=== PATIENT | male | born 1955 | race African-American/Black ===

== ENCOUNTER 2022-09-15 12:11 | Inpatient (IN) | payer OTHER ==
[2022-09-15] VITALS (7 sets, daily range): BP systolic 80–126; BP diastolic 42–67
[~2022-09-15] VITALS: Ht 165.1 cm; Wt 80.3 kg
[2022-09-15] MEDS ORDERED: IV NS 0.9% 1,000 ML BAG IV ONE ×2 (12:30→14:00)
--- NOTE | 2022-09-15 12:31 | NUR ---
[place]NS[place]IP CLERK AT BEDSIDE.
--- NOTE | 2022-09-15 12:31 | NUR ---
EMT BEDSIDE FOR EKG
--- NOTE | 2022-09-15 12:36 | NUR ---
COVID SWAB TAKEN
--- NOTE | 2022-09-15 12:39 | NUR ---
BLOOD DRAWN LAC 18G LINE INTERNET NETWORK SPECIALIST SALINE FLUSH.
[2022-09-15 13:05] LABS: BASOPHILS # (AUTO) 0.1 K/uL (0.0-0.2); BASOPHILS % (AUTO) 0.2 % (0.0-2.0); HEMATOCRIT 37 % (39-51); HEMOGLOBIN 11.5 g/dL (13.5-17.5); LYMPHOCYTES # (AUTO) 0.3 K/uL (0.8-4.8); LYMPHOCYTES % (AUTO) 1.1 % (20.0-44.0); MEAN CORPUSCULAR HGB CONC 31 g/dl (31.0-36.0); MEAN CORPUSCULAR VOLUME 88 fL (80-96); MONOCYTES # (AUTO) 1.2 K/uL (0.1-1.30); NEUTROPHILS # (AUTO) 28.5 K/uL (1.8-8.9); NEUTROPHILS % (AUTO) 94.7 % (43.0-81.0); PLATELET COUNT (AUTO) 437 K/uL (150-450); RED BLOOD CELL COUNT(AUTO) 4.22 MIL/uL (4.5-6.0)
[2022-09-15] MEDS ORDERED: METF-440 PO (13:26)
[2022-09-15] MEDS ORDERED: AMLO-212 PO (13:26)
[2022-09-15] MEDS ORDERED: PANT40TA2 PO (13:26)
[2022-09-15] MEDS ORDERED: CHOL400T PO (13:26)
[2022-09-15] MEDS ORDERED: ROSU40TA23 PO (13:26)
[2022-09-15] MEDS ORDERED: ACET-2605 PO (13:26)
[2022-09-15 13:29] LABS: ALANINE AMINOTRANSFERASE 17 U/L (12-78); ALBUMIN 2.7 g/dL (3.4-5.0); ALKALINE PHOSPHATASE 243 U/L (46-116); ASPARTATE AMINOTRANSFERASE 12 U/L (15-37); BILIRUBIN,DIRECT 0.2 mg/dL (0.0-0.2); BILIRUBIN,TOTAL 0.4 mg/dL (0.2-1.0); CALCIUM, SERUM 9.9 mg/dL (8.5-10.1); CARBON DIOXIDE 19 mmol/L (21-32); CHLORIDE 88 mmol/L (98-107); CREATININE 2.2 mg/dL (0.6-1.3); POTASSIUM 5.2 mmol/L (3.5-5.1); SODIUM SERUM 128 mmol/L (136-145); TOTAL PROTEIN, SERUM 8.6 g/dL (6.4-8.2); UREA NITROGEN, BLOOD 60 mg/dL (7-18)
--- NOTE | 2022-09-15 13:42 | NUR ---
lactic acid 2.6
[2022-09-15 13:43] LABS: WHITE BLOOD COUNT (AUTO) 30.1 K/uL (4.3-11.0)
[2022-09-15] MEDS ORDERED: VANCOMYCIN 1 GM in IV D5W 250 ML IV ONE (14:00)
[2022-09-15] MEDS ORDERED: PIPERACILLIN /TAZOBACTAM 3.375 G in IV D5W 50 ML IV ONE (14:00)
--- NOTE | 2022-09-15 14:14 | NUR ---
PAGED DR. ROCHA FOR CONSULT
--- NOTE | 2022-09-15 14:19 | NUR ---
URINE SAMPLE COLLECTED
--- NOTE | 2022-09-15 14:20 | NUR ---
REPLACED HENRIQUEZ CATHETER BLOODY URINE DRAINING FOWL ODOR FROM URETHRA NOTED
[2022-09-15] MEDS ORDERED: INSULIN REGULAR, HUMAN 100 UNITS in IV NS 0.9% 100 ML IV PRN ×2 (14:30)
--- NOTE | 2022-09-15 14:46 | NUR ---
NURSING SUPE CALLED TO INFORM OF UPDATE VITALS
[2022-09-15 14:59] LABS: BILIRUBIN,URINE NEGATIVE (NEGATIVE); COLOR,URINE YELLOW (YELLOW); LEUKOCYTE ESTERASE ,URINE 1+ (NEGATIVE); NITRITE, URINE NEGATIVE (NEGATIVE); PH,URINE 5.5 (5.0-8.0); PROTEIN,URINE TRACE mg/dl (NEGATIVE); UGLUCOSE 3+ mg/dL (NEGATIVE); UROBILINOGEN,URINE 0.2 EU/dL (0.2)
--- NOTE | 2022-09-15 15:26 | NUR ---
INSULIN DRIP STARTED 6.06ML/HOUR
[2022-09-15 15:29] LABS: RBC,URINE 51-80 /HPF (0-2)
[2022-09-15 15:30] LABS: BACTERIA,URINE 3+ /HPF (None Seen); SQUAMOUS EPITHELIAL CELL,UR 0-2 /HPF (None Seen); WBC,URINE 21-50 /HPF (0-3)
--- NOTE | 2022-09-15 15:55 | NUR ---
PATIENT TRANSFERRED TO BED 259 VIA [facility]
[2022-09-15 16:16] LABS: GLUCOSE 733 mg/dL (74-106)
[2022-09-15] MEDS ORDERED: ONDANSETRON HCL/PF 4 MG/2 ML VIAL IVP PRN (16:30)
[2022-09-15] MEDS ORDERED: MAG HYDROX/AL HYDROX/SIMETH 30 ML UDC PO PRN (16:30)
[2022-09-15] MEDS ORDERED: ZOLPIDEM TARTRATE 5 MG TABLET PO PRN (16:30)
[2022-09-15 16:35] LABS: BAND % (MANUAL) 11 % (0.0-5.0); LYMPHOCYTES % (MANUAL) 3 % (16-48); MONOCYTES % (MANUAL) 3 % (0-11.0); NEUTROPHILS % (MANUAL) 83 (42-76)
[2022-09-15] MEDS: IV NS 0.9% 1,000 ML IV PRN (16:53)
[2022-09-15] MEDS: BLOOD SUGAR DIAGNOSTIC 1 EACH STRIP IN SCH ×7 (16:53→23:08)
[2022-09-15] MEDS: Z GUARD REMEDY 4 OZ OINT TP PRN (16:57)
[2022-09-15] MEDS ORDERED: INS (REG) DRIP 100 U/100 ML NS IV PRN ×2 (17:00)
[2022-09-15] MEDS ORDERED: BLOOD SUGAR DIAGNOSTIC 1 EACH STRIP IN ONE (17:00)
[2022-09-15] MEDS: CEFTRIAXONE 1 G in IV D5W 50 ML IV SCH (17:01)
[2022-09-15] MEDS ORDERED: MIRT-90 PO (17:58)
[2022-09-15] MEDS ORDERED: ONDA4TAB5 PO (17:58)
[2022-09-15] MEDS ORDERED: HUM10VIA SQ (17:58)
[2022-09-15] MEDS ORDERED: TAMS-12 PO (17:58)
[2022-09-15] MEDS ORDERED: INSU100V7 SQ (17:58)
[2022-09-15] MEDS ORDERED: FLUO20TA28 PO (17:58)
--- NOTE | 2022-09-15 18:00 | NUR ---
FISHER MUSSEL NOTE ADMITTED 67Y/OLD PATIENT ON Dx OF DKA, BS-733, INFUSING INSULIN 10.99U, AND STARTED NS@125 ML/HR ON LACA DULCE INTACT. SKIN ASSESSMENT DONE INTACT. PATIENT A/O X2/3, ON O2-2L. NEEDS ATTENDED AND ANTICIPATED, BELONGING CHECKED, CALL LIGHT WITHIN TO TEACH. FAMILY NOTIFIED ABOUT PATIENT CONDITION . WILL FOLLOW UP.
[2022-09-15 20:11] LABS: CALCIUM, SERUM 9.4 mg/dL (8.5-10.1); CREATININE 2.1 mg/dL (0.6-1.3); POTASSIUM 4.3 mmol/L (3.5-5.1)
--- NOTE | 2022-09-15 20:50 | NUR ---
RN NOTES: PT KEPT REMOVING O2, REMOVED IV SALINE LOCK. ON INSULIN DRIP. CONSTANTLY MOVING ON THE BED. ON HIGH FALL RISK. NOTIFIED DR. ROCHA. ORDER-ACUTE SOFT BILATERAL RESTRAINT. ORDER NOTED AND CARRIED OUT.
[2022-09-15] MEDS: HEPARIN SODIUM, PORCINE 5000 UNITS/1 ML VIAL SQ SCH (21:43)
[2022-09-15 23:12] LABS: CALCIUM, SERUM 9.3 mg/dL (8.5-10.1); CREATININE 2.2 mg/dL (0.6-1.3); POTASSIUM 4.4 mmol/L (3.5-5.1)
[2022-09-16] VITALS (14 sets, daily range): BP systolic 88–118; BP diastolic 50–85
--- NOTE | 2022-09-16 00:06 | NUR ---
PEA VINER MECHANIC NOTES: NOTIFIED DR. DR. ROCHA REGARDING RECENT BLOOD SUGAR 118 AND ANION GAP-14. ORDER TO STOP THE INSULIN DRIP. START DIABETIC DIET, LANTUS 20 UNITS HS, ACCU-CHECK WITH MODERATE SLIDING SCALE ACHS. ALL ORDER NOTED AND CARRIED OUT.
[2022-09-16] MEDS ORDERED: INSULIN GLARGINE, 100 UNIT/ML CARTRIDGE SQ ONE (01:36)
[2022-09-16] MEDS: INSULIN GLARGINE, 100 UNIT/ML CARTRIDGE SQ SCH ×2 (01:43→21:07)
--- NOTE | 2022-09-16 01:48 | NUR ---
LAUNCH OPERATOR NOTES: PT'S BLOOD SUGAR 149. LANTUS 20 UNITS GIVEN. GAVE HIM JELLO AND PUDDING. PT TOLERATED WELL.
[2022-09-16 04:15] LABS: BASOPHILS # (AUTO) 0.1 K/uL (0.0-0.2); BASOPHILS % (AUTO) 0.2 % (0.0-2.0); HEMATOCRIT 30 % (39-51); HEMOGLOBIN 9.3 g/dL (13.5-17.5); LYMPHOCYTES # (AUTO) 0.6 K/uL (0.8-4.8); LYMPHOCYTES % (AUTO) 2.1 % (20.0-44.0); MEAN CORPUSCULAR HGB CONC 32 g/dl (31.0-36.0); MEAN CORPUSCULAR VOLUME 87 fL (80-96); MONOCYTES # (AUTO) 2.3 K/uL (0.1-1.30); MONOCYTES % (AUTO) 8.3 % (2.0-12.0); NEUTROPHILS # (AUTO) 24.9 K/uL (1.8-8.9); NEUTROPHILS % (AUTO) 89.4 % (43.0-81.0); PLATELET COUNT (AUTO) 292 K/uL (150-450); RED BLOOD CELL COUNT(AUTO) 3.42 MIL/uL (4.5-6.0); WHITE BLOOD COUNT (AUTO) 27.9 K/uL (4.3-11.0)
[2022-09-16 04:29] LABS: CALCIUM, SERUM 9.2 mg/dL (8.5-10.1); CREATININE 2.6 mg/dL (0.6-1.3); PHOSPHORUS 3.7 mg/dL (2.5-4.9)
[2022-09-16] MEDS: IV NS 0.9% 1,000 ML IV PRN ×2 (04:29→13:42)
[2022-09-16 04:38] LABS: THYROID STIMULATING HORMONE 0.624 uIU/mL (0.358-3.74)
--- NOTE | 2022-09-16 06:51 | NUR ---
STACKER TENDER CLOSING NOTES: PT IN BED, AWAKE, ALERT/ORIENTED X3 AND VERBALLY RESPONSIVE. ON 2L/MIN VIA NC AND PT TOLERATED WELL. O2 SAT 99%. IV ACCESS ON RAC#20G INTACT AND PATENT. NO S/S OF INFILTRATIONS. RUNNING NS AT 125CC/HR. NO C/O PAIN OR DISCOMFORT. NO ACUTE DISTRESS. ON BILATERAL SOFT RESTRAINTS ON. RELEASED Q 2HOURS TO CHECK CIRCULATIONS. NOTED ON AND OFF SCREAMING, YELLING. ALL DUE MEDS GIVEN ORDERED. ALL SAFETY MEASURES IN PLACE. SIDE RAILS UP X3, BED IN LOWEST POSITION AND LOCKED. PLACE CALL LIGHT WITH IN REACH. WILL ENDORSE TO MORNING SHIFT NURSE.
[2022-09-16] MEDS: BLOOD SUGAR DIAGNOSTIC 1 EACH STRIP VI SCH ×4 (07:40→21:07)
[2022-09-16] MEDS: PANTOPRAZOLE 40 MG TABLET.DR PO SCH (08:41)
[2022-09-16] MEDS: INSULIN REGULAR, HUMAN 100 UNIT/ML 3 ML VIAL SQ PRN ×3 (08:44→17:50)
[2022-09-16] MEDS: HEPARIN SODIUM, PORCINE 5000 UNITS/1 ML VIAL SQ SCH ×2 (08:50→20:40)
[2022-09-16 10:37] LABS: CALCIUM, SERUM 9.3 mg/dL (8.5-10.1); CREATININE 3.2 mg/dL (0.6-1.3); POTASSIUM 5.1 mmol/L (3.5-5.1)
--- NOTE | 2022-09-16 11:08 | NUR ---
[address] ROCHA THAT LAB CALLED TO NOTIFY THAT BOTH ANAEROBIC BOTTLES ARE POSITIVE FOR GRAM NEGATIVE RODS.
[2022-09-16] MEDS ORDERED: ONDANSETRON 4 MG TAB.RAPDIS PO PRN (13:00)
--- NOTE | 2022-09-16 15:11 | NUR ---
MS RN NOTES RECEIVED PATIENT FROM ICU WITH STAFF AT BEDSIDE , PATIENT IS AWAKE , A/O X 2 AND ABLE TO MAKE NEEDS KNOWN , ON 2 LITERS OF 02 AND TOLERATED WELL , KEPT COMFORTABLE OT BED , WITH F/C ATTACHED AND WITH YELLOW COLOR URINE , FOR URINARY RETENTION , NO SKIN BREAKDOWN NOTED , IV ACCESS O THE RAC #20G WITH NS @125 ML /H , NO SOB OR DISTRESS NOTED , NO C/O OF PAIN AND DISCOMFORT , SAFETY MEASURE PROVIDED , SIDRAILS UP X 2 , WILL CONTINUE WITH MONITOR
[2022-09-16 15:12] LABS: CALCIUM, SERUM 9.2 mg/dL (8.5-10.1); CREATININE 3.4 mg/dL (0.6-1.3); POTASSIUM 5.4 mmol/L (3.5-5.1)
[2022-09-16] MEDS: MAGNESIUM HYDROXIDE 30 ML UDC PO PRN (16:01)
[2022-09-16] MEDS ORDERED: INSULIN NPH/REG 70/30 MIX INJ 100 UNIT/ML VIAL SQ SCH (17:00)
[2022-09-16 17:17] LABS: BAND % (MANUAL) 9 % (0.0-5.0); LYMPHOCYTES % (MANUAL) 7 % (16-48); METAMYELOCYTES % 1 % (0-0); MONOCYTES % (MANUAL) 8 % (0-11.0); NEUTROPHILS % (MANUAL) 75 (42-76)
[2022-09-16] MEDS: CEFTRIAXONE 1 G in IV D5W 50 ML IV SCH (17:50)
[2022-09-16 18:09] LABS: BILIRUBIN,URINE 1+ (NEGATIVE); COLOR,URINE YELLOW (YELLOW); LEUKOCYTE ESTERASE ,URINE 2+ (NEGATIVE); NITRITE, URINE NEGATIVE (NEGATIVE); PROTEIN,URINE 2+ mg/dl (NEGATIVE); UGLUCOSE TRACE mg/dL (NEGATIVE); UROBILINOGEN,URINE 0.2 EU/dL (0.2)
[2022-09-16 18:20] LABS: CREATININE, URINE 82.4 MG/DL (30.0-125.0)
--- NOTE | 2022-09-16 18:33 | NUR ---
MS RN CLOSING NOTES PATIENT IN BED , AWAKE , A/O X 2 AND ABLE TO MAKE NEEDS KNOWN , ON 2 LITERS OF 02 AND TOLERATED WELL , KEPT COMFORTABLE OT BED , WITH F/C ATTACHED AND WITH YELLOW COLOR URINE , FOR URINARY RETENTION , NOTED WITH 1 BM AND KEPT CLEAN AND DRY , IV ACCESS O THE RAC #20G WITH NS @125 ML /H , ALL DUE MEDS GIVEN ORDERED , NO SOB OR DISTRESS NOTED , NO C/O OF PAIN AND DISCOMFORT , SAFETY MEASURE PROVIDED , SIDERAILS UP X 2 , WILL ENDORSED TO NEXT SHIFT
[2022-09-16 19:02] LABS: RBC,URINE 81-100 /HPF (0-2); WBC,URINE 21-50 /HPF (0-3)
[2022-09-16 19:03] LABS: BACTERIA,URINE 3+ /HPF (None Seen); FINE GRANULAR CASTS,URINE Few /LPF (None Seen); SQUAMOUS EPITHELIAL CELL,UR 0-2 /HPF (None Seen)
[2022-09-16 19:20] LABS: CALCIUM, SERUM 9.2 mg/dL (8.5-10.1); CREATININE 3.7 mg/dL (0.6-1.3); POTASSIUM 5.1 mmol/L (3.5-5.1)
[2022-09-16] MEDS: MIRTAZAPINE 15 MG TABLET PO SCH (21:06)
[2022-09-16] MEDS ORDERED: INSULIN GLARGINE, 100 UNIT/ML CARTRIDGE SQ SCH (22:00)
[2022-09-17] MEDS: PANTOPRAZOLE 40 MG TABLET.DR PO SCH (06:08)
[2022-09-17 06:34] LABS: BASOPHILS % (AUTO) 0.1 % (0.0-2.0); EOSINOPHILS % (AUTO) 0.7 % (0.0-6.0); HEMATOCRIT 31 % (39-51); HEMOGLOBIN 9.6 g/dL (13.5-17.5); LYMPHOCYTES # (AUTO) 0.5 K/uL (0.8-4.8); LYMPHOCYTES % (AUTO) 2.5 % (20.0-44.0); MEAN CORPUSCULAR HGB CONC 31 g/dl (31.0-36.0); MEAN CORPUSCULAR VOLUME 87 fL (80-96); MONOCYTES # (AUTO) 1.1 K/uL (0.1-1.30); MONOCYTES % (AUTO) 5.4 % (2.0-12.0); NEUTROPHILS # (AUTO) 18.7 K/uL (1.8-8.9); NEUTROPHILS % (AUTO) 91.3 % (43.0-81.0); PLATELET COUNT (AUTO) 243 K/uL (150-450); RED BLOOD CELL COUNT(AUTO) 3.53 MIL/uL (4.5-6.0); WHITE BLOOD COUNT (AUTO) 20.5 K/uL (4.3-11.0)
[2022-09-17] MEDS: BLOOD SUGAR DIAGNOSTIC 1 EACH STRIP VI SCH ×4 (06:44→21:16)
[2022-09-17 07:08] LABS: CALCIUM, SERUM 9.2 mg/dL (8.5-10.1); CREATININE 4.4 mg/dL (0.6-1.3); MAGNESIUM 2.7 mg/dL (1.8-2.4); PHOSPHORUS 5.5 mg/dL (2.5-4.9); POTASSIUM 5.4 mmol/L (3.5-5.1)
--- NOTE | 2022-09-17 07:10 | NUR ---
MS RN OPENING NOTES RECEIVED PATIENT IN BED, AWAKE, A/O X 2 AND ABLE TO MAKE NEEDS KNOWN, ON 2 LITERS OF 02 AND TOLERATED WEL , KEPT COMFORTABLE OT BED , WITH F/C ATTACHED AND WITH YELLOW COLOR URINE , FOR URINARY RETENTION , WITH IV ACCESS O THE RAC #20G WITH NS @125 ML/HR , NO SOB OR DISTRESS NOTED , NO C/O OF PAIN AND DISCOMFORT , SAFETY MEASURE PROVIDED , SIDERAILS UP X 2 , WILL CONTINUE TO MONITOR
[2022-09-17] MEDS ORDERED: PANTOPRAZOLE 40 MG TABLET.DR PO SCH (07:30)
[2022-09-17 08:00] VITALS: BP 117/73
[2022-09-17] MEDS: FLUOXETINE HCL 20 MG CAPSULE PO SCH (08:53)
[2022-09-17] MEDS: TAMSULOSIN 0.4 MG CAP.SR.24H PO SCH (08:54)
[2022-09-17] MEDS: CHOLECALCIFEROL (VITAMIN D 3) 400 UNIT TABLET PO SCH (08:55)
[2022-09-17] MEDS: ATORVASTATIN 40 MG TABLET PO SCH (08:55)
[2022-09-17] MEDS: AMLODIPINE BESYLATE 5 MG TABLET PO SCH (08:55)
[2022-09-17] MEDS: HEPARIN SODIUM, PORCINE 5000 UNITS/1 ML VIAL SQ SCH ×2 (08:57→21:05)
[2022-09-17] MEDS: INSULIN GLARGINE, 100 UNIT/ML CARTRIDGE SQ SCH ×2 (09:18→21:17)
[2022-09-17] MEDS: INSULIN REGULAR, HUMAN 100 UNIT/ML 3 ML VIAL SQ PRN ×2 (11:43→17:15)
[2022-09-17 12:06] LABS: BAND % (MANUAL) 12 % (0.0-5.0); LYMPHOCYTES % (MANUAL) 7 % (16-48); MONOCYTES % (MANUAL) 5 % (0-11.0); NEUTROPHILS % (MANUAL) 76 (42-76)
--- NOTE | 2022-09-17 13:30 | NUR ---
Removed patient's soft restraints. Patient is A/O x 3, aware of his surroundings 7 IV, reminded not to remove, cooperative and compliant.
[2022-09-17 16:00] VITALS: BP 105/67
[2022-09-17] MEDS: CEFTRIAXONE 1 G in IV D5W 50 ML IV SCH (17:00)
[2022-09-17] MEDS ORDERED: SODIUM POLYSTYRENE SULF. PWD 15 GM UDC PO ONE (18:00)
[2022-09-17] MEDS: IV NS 0.9% 1,000 ML IV SCH (18:04)
--- NOTE | 2022-09-17 18:53 | NUR ---
MS RN CLOSING NOTES: PT IN BED, AWAKE, ALERT/ORIENTED X3 AND VERBALLY RESPONSIVE. ON 2L/MIN VIA NC AND PT TOLERATED WELL. O2 SAT 99%. IV ACCESS ON RAC#20G INTACT AND PATENT. NO S/S OF INFILTRATIONS. RUNNING NS AT 125CC/HR. NO C/O PAIN OR DISCOMFORT. NO ACUTE DISTRESS. SOFT RESTRAINTS REMOVED FOR NOW AND BUT ON STAND BY, RN TO PUT BACK PRN. ALL DUE MEDS GIVEN ORDERED INCLUDING SODIUM POLYSTYRENE ORDERED. ALL SAFETY MEASURES IN PLACE. SIDE RAILS UP X3, BED IN LOWEST POSITION AND LOCKED. PLACE CALL LIGHT WITH IN REACH. WILL ENDORSE TO GROUNDHAND RN.
--- NOTE | 2022-09-17 19:30 | NUR ---
MS RN OPENING NOTES - RECEIVED PATIENT AWAKE, HOB IN HIGH CHEEMA'S. A/O X2-3, MODERATE WEAKNESS ON BILATERAL UPPER EXTREMITIES NOTED. BREATHING EVEN AND NON-LABORED, ON O2 AT 2LPM VIA NASAL CANULA. NO C/O PAIN OR DISCOMFORT AT THIS TIME. HAS RIGHT FOREARM IV ACCESS #20G WITH NS RUNNING AT 100 ML/HR. NO S/S OF INFILTRATION NOTED. HAS INDWELLING HENRIQUEZ CATHETER DRAINING CLEAR YELLOW URINE TO BAG BY GRAVITY. SAFETY PRECAUTIONS IN PLACE: BED LOCKED AND IN LOW POSITION, SIDE RAILS UP X2, CALL LIGHT WITHIN REACH. WILL CONTINUE PLAN OF CARE.
[2022-09-17 19:37] LABS: CALCIUM, SERUM 9.1 mg/dL (8.5-10.1); CREATININE 5.1 mg/dL (0.6-1.3); POTASSIUM 5.2 mmol/L (3.5-5.1)
--- NOTE | 2022-09-17 19:39 | NUR ---
RECEIVED CALL FROM LAB: [facility]. WILL INFORM HOSPITALIST LILLI BRANTLEY Addendum: 09/17/22 at 1945 by January CANDICE TORRES NOTIFIED DR. MORALES Addendum: 09/17/22 at 204 by January CANDICE TORRES NO NEW ORDER FROM BOTH DOCTORS.
[2022-09-17 20:22] VITALS: BP 101/65
[2022-09-17] MEDS: MIRTAZAPINE 15 MG TABLET PO SCH (21:03)
[2022-09-17] MEDS: ACETAMINOPHEN ES 500 MG TABLET PO PRN (21:04)
[2022-09-17] MEDS: *INSULIN REGULAR(HUMULIN R)HUM 100 UNIT/ML VIAL SQ PRN (21:17)
--- NOTE | 2022-09-17 22:05 | NUR ---
DID NOT ADMINISTER LANT, BS 89
--- NOTE | 2022-09-17 23:06 | NUR ---
PATIENT HAD SOFT BM X4 TODAY. NOTIFIED LILLI AND ORDERED IMODIUM 2MG PO Q4H PRN. NOTED AND CARRIED OUT.
[2022-09-17] MEDS ORDERED: LOPERAMIDE HCL (2 MG CAP) 2 MG CAPSULE PO PRN (23:30)
[2022-09-18] MEDS ORDERED: LOPERAMIDE HCL (2 MG CAP) 2 MG CAPSULE ONE (03:05)
[2022-09-18] MEDS: IV NS 0.9% 1,000 ML IV SCH ×2 (04:49→18:44)
[2022-09-18 06:09] LABS: BASOPHILS # (AUTO) 0.1 K/uL (0.0-0.2); BASOPHILS % (AUTO) 0.5 % (0.0-2.0); EOSINOPHILS % (AUTO) 0.3 % (0.0-6.0); HEMATOCRIT 33 % (39-51); HEMOGLOBIN 10.2 g/dL (13.5-17.5); LYMPHOCYTES # (AUTO) 0.4 K/uL (0.8-4.8); LYMPHOCYTES % (AUTO) 2.8 % (20.0-44.0); MEAN CORPUSCULAR HGB CONC 31 g/dl (31.0-36.0); MEAN CORPUSCULAR VOLUME 86 fL (80-96); MONOCYTES # (AUTO) 0.2 K/uL (0.1-1.30); MONOCYTES % (AUTO) 1.8 % (2.0-12.0); NEUTROPHILS # (AUTO) 12.2 K/uL (1.8-8.9); NEUTROPHILS % (AUTO) 94.6 % (43.0-81.0); PLATELET COUNT (AUTO) 223 K/uL (150-450); RED BLOOD CELL COUNT(AUTO) 3.82 MIL/uL (4.5-6.0); WHITE BLOOD COUNT (AUTO) 12.9 K/uL (4.3-11.0)
[2022-09-18 06:22] LABS: CALCIUM, SERUM 9.2 mg/dL (8.5-10.1); CREATININE 5.4 mg/dL (0.6-1.3); MAGNESIUM 2.9 mg/dL (1.8-2.4); PHOSPHORUS 7.1 mg/dL (2.5-4.9)
--- NOTE | 2022-09-18 06:26 | NUR ---
BS 60, APPLE JUICE GIVEN. WILL RECHECK IN 30 MINUTES. Addendum: 09/18/22 at 0649 by January CANDICE TORRES GAVE CRANBERRY JUICE WITH SUGAR PER CN
[2022-09-18] MEDS: INSULIN REGULAR, HUMAN 100 UNIT/ML 3 ML VIAL SQ PRN (06:32)
[2022-09-18] MEDS: BLOOD SUGAR DIAGNOSTIC 1 EACH STRIP VI SCH ×4 (06:32→22:44)
--- NOTE | 2022-09-18 06:58 | NUR ---
MS RN CLOSING NOTES - PATIENT SLEEPING, EASY TO AROUSE. NO ACUTE DISTRESS THROUGHOUT THE NIGHT. TOLERATING O2 AT 2LPM VIA NASAL CANULA, SATURATING AT 96%. NO C/O PAIN OR DISCOMFORT AT THIS TIME. AFEBRILE. HAD BM X4, NO EPISODE AFTER TAKING IMODIUM. RIGHT FOREARM IV ACCESS #20G INTACT, PATENT AND FLUSHING. ALL DUE MEDS GIVEN AND NEEDS ATTENDED. NO INSULIN COVERAGE GIVEN. SAFETY PRECAUTIONS MAINTAINED. WILL ENDORSE TO NEXT SHIFT FOR CALLY.
--- NOTE | 2022-09-18 07:10 | NUR ---
MS RN OPENING NOTES RECEIVED PATIENT IN BED, AWAKE, A/O X 2 AND ABLE TO MAKE NEEDS KNOWN, ON 2 LITERS OF 02 AND TOLERATING WELL, KEPT COMFORTABLE IN BED, ON F/C WITH YELLOW COLOR URINE, FOR URINARY RETENTION, WITH IV ACCESS ON RAC #20G RUNNING NS @100 ML/HR, NO SOB OR DISTRESS NOTED, NO C/O OF PAIN AND DISCOMFORT, SAFETY MEASURE PROVIDED, SIDE RAILS UP X2, WILL CONTINUE TO MONITOR
[2022-09-18] MEDS: CHOLECALCIFEROL (VITAMIN D 3) 400 UNIT TABLET PO SCH (08:18)
[2022-09-18] MEDS: PANTOPRAZOLE 40 MG TABLET.DR PO SCH (08:18)
[2022-09-18] MEDS: TAMSULOSIN 0.4 MG CAP.SR.24H PO SCH (08:18)
[2022-09-18] MEDS: AMLODIPINE BESYLATE 5 MG TABLET PO SCH (08:19)
[2022-09-18] MEDS: FLUOXETINE HCL 20 MG CAPSULE PO SCH (08:19)
[2022-09-18 08:20] VITALS: BP 108/66
[2022-09-18] MEDS: ATORVASTATIN 40 MG TABLET PO SCH (08:20)
[2022-09-18] MEDS: HEPARIN SODIUM, PORCINE 5000 UNITS/1 ML VIAL SQ SCH ×2 (08:21→21:44)
[2022-09-18] MEDS: INSULIN GLARGINE, 100 UNIT/ML CARTRIDGE SQ SCH ×2 (08:36→22:00)
[2022-09-18] MEDS ORDERED: IV NS 0.9% 1,000 ML IV PRN (09:32)
[2022-09-18 16:24] VITALS: BP 107/63
[2022-09-18] MEDS: CEFTRIAXONE 1 G in IV D5W 50 ML IV SCH (17:51)
--- NOTE | 2022-09-18 19:00 | NUR ---
RN OPENING NOTES PT IS AWAKE IN BED. A/O X 3, ABLE TO MAKE NEEDS KNOWN. PT IN NASAL CANNULA OF 2L O2, TOLERATING WELL, BREATHING EVEN AND UNLABORED @ THIS TIME. PT IV ACCESS PRESENT LFA #20g NL RUNNING 100 MLS/HR OF NS, PATENT, INTACT AND FLUSHES WELL, WITH NO S/S OF INFILTRATION @ SITE NOTED. PT IN HENRIQUEZ CATHETER IN PLACE DRAINING YELLOW URINE. SAFETY MEASURES IN PLACE, BED AT ITS LOWEST AND LOCKED POSITION, SIDE RAILS X 3, BEDSIDE TABLE AND CALL LIGHT IS EASY REACH. BED ALARM IS ON. WILL CONTINUE TO MONITOR PATIENT ACCORDINGLY.
--- NOTE | 2022-09-18 19:20 | NUR ---
MS RN CLOSING NOTES: PT IN BED, AWAKE, ALERT/ORIENTED X3 AND VERBALLY RESPONSIVE. ON 2L/MIN VIA NC AND PT TOLERATED WELL. O2 SAT 98%. IV ACCESS ON RAC#20G INTACT AND PATENT. NO S/S OF INFILTRATIONS. RUNNING NS AT 100CC/HR. NO C/O PAIN OR DISCOMFORT. NO ACUTE DISTRESS. SOFT RESTRAINTS REMOVED. ALL DUE MEDS GIVEN ORDERED. ALL SAFETY MEASURES IN PLACE. SIDE RAILS UP X3, BED IN LOWEST POSITION AND LOCKED. PLACE CALL LIGHT WITH IN REACH. WILL ENDORSE TO ROTARY DRIER OPERATOR RN.
[2022-09-18 19:25] LABS: CALCIUM, SERUM 8.6 mg/dL (8.5-10.1); CREATININE 5.8 mg/dL (0.6-1.3); POTASSIUM 4.7 mmol/L (3.5-5.1)
[2022-09-18 20:00] VITALS: BP 104/61
[2022-09-18] MEDS: MIRTAZAPINE 15 MG TABLET PO SCH (21:44)
[2022-09-18] MEDS: DEXTROSE 50%-WATER 50 ML DISP.SYRIN IV PRN (22:08)
--- NOTE | 2022-09-18 22:46 | NUR ---
HELD JON @2200 DUE TO POC GLUCOSE OF 53.
--- NOTE | 2022-09-18 22:48 | NUR ---
ADMINISTERED 50%-WATER 50ML @ 250 MLS/HR DUE TO POC GLUCOSE OF 53. Addendum: 09/19/22 at 0558 by BENITEZ CASILLAS RN CHARGE MARCIE SWEET IS INFOMED AND NOTIFIED.
[2022-09-19] MEDS: ACETAMINOPHEN 325 MG TABLET PO PRN (04:36)
[2022-09-19] MEDS: IV NS 0.9% 1,000 ML IV SCH ×2 (04:37→14:33)
[2022-09-19] MEDS: DEXTROSE 50%-WATER 50 ML DISP.SYRIN IV PRN (05:43)
--- NOTE | 2022-09-19 05:58 | NUR ---
ADMINISTERED DEXTROSE 50-WATER 50 @ 250 MLS/HR DUE TO POC GLUCOSE OF 38 @0540. PT GIVEN & DRUNK 1 APPLE WITH 3g of EQUAL SWEETENER. CHARGE NURSE, MARCIE INFORMED AND NOTIFIED.
[2022-09-19 06:19] LABS: BASOPHILS % (AUTO) 0.2 % (0.0-2.0); EOSINOPHILS % (AUTO) 0.5 % (0.0-6.0); HEMATOCRIT 28 % (39-51); HEMOGLOBIN 8.7 g/dL (13.5-17.5); LYMPHOCYTES # (AUTO) 0.5 K/uL (0.8-4.8); LYMPHOCYTES % (AUTO) 3.4 % (20.0-44.0); MEAN CORPUSCULAR HGB CONC 32 g/dl (31.0-36.0); MEAN CORPUSCULAR VOLUME 86 fL (80-96); MONOCYTES # (AUTO) 1.4 K/uL (0.1-1.30); MONOCYTES % (AUTO) 9.8 % (2.0-12.0); NEUTROPHILS # (AUTO) 12.4 K/uL (1.8-8.9); NEUTROPHILS % (AUTO) 86.1 % (43.0-81.0); PLATELET COUNT (AUTO) 175 K/uL (150-450); RED BLOOD CELL COUNT(AUTO) 3.21 MIL/uL (4.5-6.0); WHITE BLOOD COUNT (AUTO) 14.4 K/uL (4.3-11.0)
--- NOTE | 2022-09-19 06:20 | NUR ---
RN CLOSING NOTES PT IS DOZING INTERMITTENTLY. A/O X 3, ABLE TO MAKE NEEDS KNOWN. PT IN NASAL CANNULA OF 2L O2, TOLERATING WELL, BREATHING EVEN AND UNLABORED @ THIS TIME. PT IV ACCESS PRESENT LFA #20g NL RUNNING 100 MLS/HR OF NS, PATENT, INTACT AND FLUSHES WELL, WITH NO S/S OF INFILTRATION @ SITE NOTED. PT IN HENRIQUEZ CATHETER IN PLACE DRAINING YELLOW URINE. MEDICATION ADMINISTERED PER MD'S ORDER. SAFETY MEASURES IN PLACE, BED AT ITS LOWEST AND LOCKED POSITION, SIDE RAILS X 3, BEDSIDE TABLE AND CALL LIGHT IS EASY REACH. BED ALARM IS ON. WILL CONTIINUE TO MONITOR PATIENT ACCORDINGLY.
[2022-09-19] MEDS: PANTOPRAZOLE 40 MG TABLET.DR PO SCH (06:42)
[2022-09-19] MEDS: BLOOD SUGAR DIAGNOSTIC 1 EACH STRIP VI SCH ×4 (06:42→21:51)
[2022-09-19 06:58] LABS: CALCIUM, SERUM 8.5 mg/dL (8.5-10.1); CREATININE 5.8 mg/dL (0.6-1.3); MAGNESIUM 2.5 mg/dL (1.8-2.4); POTASSIUM 4.4 mmol/L (3.5-5.1)
--- NOTE | 2022-09-19 07:55 | NUR ---
MS RN OPENING NOTE RECEIVED PATIENT RESTING IN BED. HOB IN HIGH CHEEMA'S. A/O X2-3. BREATHING EVEN AND NON-LABORED, ON O2 AT 2LPM VIA NASAL CANULA. NO C/O PAIN OR DISCOMFORT AT THIS TIME. HAS RIGHT FOREARM IV ACCESS #20G WITH NS RUNNING AT 100 ML/HR. NO S/S OF INFILTRATION NOTED. HAS INDWELLING HENRIQUEZ CATHETER DRAINING CLEAR YELLOW URINE TO BAG BY GRAVITY. SAFETY PRECAUTIONS IN PLACE: BED LOCKED AND IN LOW POSITION, SIDE RAILS UP X2, CALL LIGHT WITHIN REACH. WILL CONTINUE TO MONITOR PT AND PROVIDE THE CARE.
[2022-09-19 08:36] VITALS: BP 107/67
[2022-09-19] MEDS: CHOLECALCIFEROL (VITAMIN D 3) 400 UNIT TABLET PO SCH (09:30)
[2022-09-19] MEDS: FLUOXETINE HCL 20 MG CAPSULE PO SCH (09:31)
[2022-09-19] MEDS: TAMSULOSIN 0.4 MG CAP.SR.24H PO SCH (09:31)
[2022-09-19] MEDS: AMLODIPINE BESYLATE 5 MG TABLET PO SCH (09:31)
[2022-09-19] MEDS: ATORVASTATIN 40 MG TABLET PO SCH (09:31)
[2022-09-19] MEDS: HEPARIN SODIUM, PORCINE 5000 UNITS/1 ML VIAL SQ SCH ×2 (09:33→21:00)
--- NOTE | 2022-09-19 09:40 | NUR ---
NOTIFIED HOSPITALIST LILLI THAT HGB DROPPED FROM 10.2 TO 8.7 AND PATIENT HAS HISTORY OF ANEMIA. ORDERED TO HOLD HEPARIN TONIGHT. NOTED AND CARRIED OUT. Addendum: 09/19/22 at 2213 by January CANDICE TORRES INCORRECT TIME
[2022-09-19] MEDS: INSULIN GLARGINE, 100 UNIT/ML CARTRIDGE SQ SCH ×2 (10:04→21:50)
[2022-09-19 16:04] VITALS: BP 109/62
[2022-09-19] MEDS: CEFTRIAXONE 1 G in IV D5W 50 ML IV SCH (17:00)
--- NOTE | 2022-09-19 18:36 | NUR ---
RN CLOSING NOTE PT IS RESTING IN BED, A/O X2-3, ABLE TO MAKE NEEDS KNOWN. PT WITH NASAL CANNULA OF 2L O2, TOLERATING WELL, BREATHING EVEN AND NON LABORED. IV ACCESS PRESENT LFA #20G RUNNING 100 MLS/HR OF NS, PATENT, INTACT AND FLUSHES WELL, WITH NO S/S OF INFILTRATION @ SITE NOTED. PT IN HENRIQUEZ CATHETER IN PLACE DRAINING YELLOW URINE. KEPT PATIENT CLEAN AND DRY. MEDICATION ADMINISTERED ORDER. SAFETY MEASURES IN PLACE, BED AT ITS LOWEST AND LOCKED POSITION, SIDE RAILS X 3, BEDSIDE TABLE AND CALL LIGHT IS EASY REACH. BED ALARM IS ON. WILL ENDORSE TO INCOMING SHIFT FOR CALLY.
[2022-09-19 19:28] LABS: CALCIUM, SERUM 8.2 mg/dL (8.5-10.1); POTASSIUM 4.9 mmol/L (3.5-5.1)
--- NOTE | 2022-09-19 19:30 | NUR ---
MS RN OPENING NOTES - RECEIVED PATIENT SLEEPING IN BED, EASY TO AROUSE. A/O X3, WITH PERIODS OF CONFUSION. HE IS LOOKING FOR HIS BREAKFAST. BLOOD SUGAR 114. BREATHING EVEN AND NON-LABORED, ON O2 AT 2LPM VIA NASAL CANULA. NOT IN ACUTE DISTRESS. NO C/O PAIN OR DISCOMFORT AT THIS TIME. HAS RIGHT FOREARM IV ACCESS #20G WITH NS RUNNING AT 100 ML/HR. NO S/S OF INFILTRATION NOTED. HAS INDWELLING HENRIQUEZ CATHETER DRAINING CLEAR CINDY URINE TO BAG BY GRAVITY. SAFETY MEASURES IN PLACE: BED LOCKED AND IN LOW POSITION, SIDE RAILS UP X3, CALL LIGHT WITHIN REACH. WILL CONTINUE PLAN OF CARE.
[2022-09-19 20:00] VITALS: BP 102/61
[2022-09-19] MEDS: MIRTAZAPINE 15 MG TABLET PO SCH (21:27)
[2022-09-19] MEDS: ACETAMINOPHEN ES 500 MG TABLET PO PRN (21:27)
--- NOTE | 2022-09-19 21:40 | NUR ---
NOTIFIED HOSPITALIST LILLI THAT HGB DROPPED FROM 10.2 TO 8.7 AND PATIENT HAS HISTORY OF ANEMIA. ORDERED TO HOLD HEPARIN TONIGHT. NOTED AND CARRIED OUT.
[2022-09-19] MEDS: *INSULIN REGULAR(HUMULIN R)HUM 100 UNIT/ML VIAL SQ PRN (21:51)
--- NOTE | 2022-09-19 22:45 | NUR ---
NOTIFIED HOSPITALIST LILLI THAT PATIENT HAS BEEN C/O SHARP PAIN IN HIS URETHRAL HOLE. UPON ASSESSMENT, THERE IS MINIMAL PUS IN THE HOLE AND CLOUDY URINE IN THE CATHETER. CLEANED PENIS WITH NS AND SECURED CATHETER. PER LILLI, SHE WILL INPUT AN ORDER FOR LIDOCAINE. POSSIBLE REINSERTION OF NEW IFC WELL. Addendum: 09/20/22 at 0543 by January CANDICE TORRES STILL C/O URETHRAL HOLE PAIN. SWELLING IN THE GLANS AND MINIMAL URINE OUTPUT NOTED. FLUSHED HENRIQUEZ CATHETER WITH 200 ML NS BUT WAS ABLE TO ASPIRATE 100 ML ONLY. BLADDER SCAN SHOWS URINE RETENTION OF >100 ML. PERSONAL FITNESS TRAINER AWARE OF BUN TRENDING UP.
[2022-09-19] MEDS ORDERED: LIDOCAINE 2% JEL 5 ML TUBE MC ONE (23:00)
[2022-09-19] MEDS ORDERED: LIDOCAINE 2% JEL 5 ML TUBE ONE (23:14)
[2022-09-20] MEDS: IV NS 0.9% 1,000 ML IV SCH ×3 (01:00→21:15)
[2022-09-20 05:52] LABS: BASOPHILS % (AUTO) 0.2 % (0.0-2.0); EOSINOPHILS % (AUTO) 0.5 % (0.0-6.0); HEMATOCRIT 27 % (39-51); HEMOGLOBIN 8.7 g/dL (13.5-17.5); LYMPHOCYTES # (AUTO) 0.3 K/uL (0.8-4.8); MEAN CORPUSCULAR HGB CONC 32 g/dl (31.0-36.0); MEAN CORPUSCULAR VOLUME 85 fL (80-96); MONOCYTES # (AUTO) 0.6 K/uL (0.1-1.30); MONOCYTES % (AUTO) 7.4 % (2.0-12.0); NEUTROPHILS # (AUTO) 7.7 K/uL (1.8-8.9); NEUTROPHILS % (AUTO) 88.9 % (43.0-81.0); PLATELET COUNT (AUTO) 169 K/uL (150-450); RED BLOOD CELL COUNT(AUTO) 3.15 MIL/uL (4.5-6.0); WHITE BLOOD COUNT (AUTO) 8.7 K/uL (4.3-11.0)
[2022-09-20 06:12] LABS: CALCIUM, SERUM 8.5 mg/dL (8.5-10.1); CREATININE 6.3 mg/dL (0.6-1.3); MAGNESIUM 2.5 mg/dL (1.8-2.4); PHOSPHORUS 7.3 mg/dL (2.5-4.9)
--- NOTE | 2022-09-20 06:30 | NUR ---
BS 137, NO INSULIN COVERAGE GIVEN SINCE PATIENT HAS POOR PO INTAKE AND EPISODES OF HYPOGLYCEMIA.
[2022-09-20] MEDS: INSULIN REGULAR, HUMAN 100 UNIT/ML 3 ML VIAL SQ PRN ×3 (06:36→17:22)
[2022-09-20] MEDS: BLOOD SUGAR DIAGNOSTIC 1 EACH STRIP VI SCH ×4 (06:36→22:41)
--- NOTE | 2022-09-20 06:48 | NUR ---
MS RN CLOSING NOTES - PATIENT AWAKE IN BED, LETHARGIC BUT ABLE TO VERBALIZE NEEDS. HAD MILD DISTRESS DUE TO URETHRAL HOLE PAIN. NO SOB OR NOTED, TOLERATING O2 AT 2LPM WELL. AFEBRILE. RIGHT FOREARM IV ACCESS #20G INTACT, PATENT AND FLUSHING. CLOUDY CINDY URINE STILL NOTED. ALL DUE MEDS GIVEN AND NEEDS ATTENDED. REPOSITIONED AND OFFLOADED BUTTOCKS AND BILATERAL LOWER EXTREMITIES. SAFETY MEASURES MAINTAINED. WILL ENDORSE TO NEXT SHIFT FOR CALLY.
--- NOTE | 2022-09-20 07:27 | NUR ---
MS RN OPENING NOTE RECEIVED PT ASLEEP IN BED, EASILY AROUSED. PATIENT IS ALERT AND ORIENTED X3 WITH PERIODS OF CONFUSION, REDIRECTED AND REORIENTED PT NEEDED. PT ON O2 AT 2L/MIN VIA NASAL CANNULA, TOLERATING WELL. NO SOB NOTED AT THIS TIME. NOT IN ANY SIGN OF RESPIRATORY DISTRESS. IV ACCESS ON RFA G#20 INTACT AND PATENT WITH NS INFUSING AT 100ML/HR. SAFETY MEASURES INITIATED: BED IN LOWEST AND LOCKED POSITION, SIDE RAILS UP X2, AND CALL LIGHT WITHIN REACH. WILL CONTINUE TO MONITOR PT.
[2022-09-20 08:00] VITALS: BP 98/53
[2022-09-20] MEDS: PANTOPRAZOLE 40 MG TABLET.DR PO SCH (08:16)
[2022-09-20] MEDS: INSULIN GLARGINE, 100 UNIT/ML CARTRIDGE SQ SCH ×2 (08:21→22:29)
[2022-09-20] MEDS: AMLODIPINE BESYLATE 5 MG TABLET PO SCH (08:49)
[2022-09-20] MEDS: ATORVASTATIN 40 MG TABLET PO SCH (08:49)
[2022-09-20] MEDS: FLUOXETINE HCL 20 MG CAPSULE PO SCH (08:49)
[2022-09-20] MEDS: CHOLECALCIFEROL (VITAMIN D 3) 400 UNIT TABLET PO SCH (08:49)
[2022-09-20] MEDS: TAMSULOSIN 0.4 MG CAP.SR.24H PO SCH (08:49)
[2022-09-20] MEDS: HEPARIN SODIUM, PORCINE 5000 UNITS/1 ML VIAL SQ SCH ×2 (09:00→21:19)
--- NOTE | 2022-09-20 09:40 | NUR ---
RN NOTE PT REFUSED HIS HEPARIN MEDICATION SCHEDULED AT 0900. EXPLAINED RISK AND BENEFITS, PT STILL REFUSED.
[2022-09-20 13:58] LABS: BAND % (MANUAL) 3 % (0.0-5.0); EOSINOPHILS % (MANUAL) 1 % (0-4); LYMPHOCYTES % (MANUAL) 4 % (16-48); MONOCYTES % (MANUAL) 6 % (0-11.0); NEUTROPHILS % (MANUAL) 86 (42-76)
[2022-09-20 16:09] VITALS: BP 119/62
[2022-09-20] MEDS: GLUCERNA SHAKE 237 ML CAN PO SCH (17:22)
[2022-09-20] MEDS: CEFTRIAXONE 1 G in IV D5W 50 ML IV SCH (18:21)
--- NOTE | 2022-09-20 19:40 | NUR ---
MS RN CLOSING NOTE PT ASLEEP IN BED, EASILY AROUSED. PATIENT IS ALERT AND ORIENTED X3 WITH PERIODS OF CONFUSION, REDIRECTED AND REORIENTED PT NEEDED. PT ON O2 AT 2L/MIN VIA NASAL CANNULA, TOLERATING WELL. NO SOB NOTED AT THIS TIME. NOT IN ANY SIGN OF RESPIRATORY DISTRESS. IV ACCESS ON RFA G#20 INTACT AND PATENT WITH NS INFUSING AT 100ML/HR. ALL NEEDS ATTENDED. KEPT CLEAN AND COMFORTABLE AT ALL TIMES. TURNED AND REPOSITIONED Q2HRS AND NEEDED. SAFETY MEASURES IN PLACE: BED IN LOWEST AND LOCKED POSITION, SIDE RAILS UP X2, AND CALL LIGHT WITHIN REACH. ENDORSED TO WIRING MECHANIC NURSE FOR CALLY.
[2022-09-20] MEDS: ACETAMINOPHEN 325 MG TABLET PO PRN (19:53)
--- NOTE | 2022-09-20 19:57 | NUR ---
RN OPENING NOTES RECEIVED PATIENT ON BED, AWAKE, A/O X3. ON MODERATE HIGH BACK REST POSITION. HOOKED TO OXYGEN VIA NASAL CANNULA AT 2LPM. TOLERATING WELL. NO S/S OF SHORTNESS OF BREATH. BREATH EVENLY. WITH IV ACCESS AT FFA #20G WITH NS AT 100ML/HR INFUSING WELL. PATIENT COMPLAINS OF PAIN AT THIS TIME /10. PAIN MEDICATIONS GIVEN AND TOLERATED WELL. KEPT SIDE RAILS UP X 2 ALL THE TIME. KEPT BED ON LOWER LOCKED POSITION. KEPT CALL LIGHT WITHIN AT REACH. SAFETY MEASURES MAINTAINED. WILL CONTINUE TO MONITOR PATIENTS CONDITION.
[2022-09-20 20:00] VITALS: BP 105/60
[2022-09-20 20:10] LABS: CALCIUM, SERUM 8.6 mg/dL (8.5-10.1); CREATININE 6.7 mg/dL (0.6-1.3); POTASSIUM 5.3 mmol/L (3.5-5.1)
[2022-09-20] MEDS: MIRTAZAPINE 15 MG TABLET PO SCH (22:22)
[2022-09-20] MEDS: *INSULIN REGULAR(HUMULIN R)HUM 100 UNIT/ML VIAL SQ PRN (22:41)
[2022-09-21 06:23] LABS: BASOPHILS % (AUTO) 0.1 % (0.0-2.0); EOSINOPHILS % (AUTO) 0.4 % (0.0-6.0); HEMATOCRIT 25 % (39-51); HEMOGLOBIN 7.6 g/dL (13.5-17.5); LYMPHOCYTES # (AUTO) 0.6 K/uL (0.8-4.8); MEAN CORPUSCULAR HGB CONC 31 g/dl (31.0-36.0); MEAN CORPUSCULAR VOLUME 88 fL (80-96); MONOCYTES # (AUTO) 1.6 K/uL (0.1-1.30); MONOCYTES % (AUTO) 14.3 % (2.0-12.0); NEUTROPHILS # (AUTO) 9.2 K/uL (1.8-8.9); NEUTROPHILS % (AUTO) 80.2 % (43.0-81.0); PLATELET COUNT (AUTO) 212 K/uL (150-450); RED BLOOD CELL COUNT(AUTO) 2.81 MIL/uL (4.5-6.0); WHITE BLOOD COUNT (AUTO) 11.5 K/uL (4.3-11.0)
[2022-09-21] MEDS: BLOOD SUGAR DIAGNOSTIC 1 EACH STRIP VI SCH ×4 (06:24→22:00)
[2022-09-21 06:59] LABS: CALCIUM, SERUM 8.7 mg/dL (8.5-10.1); MAGNESIUM 2.7 mg/dL (1.8-2.4); POTASSIUM 5.6 mmol/L (3.5-5.1)
[2022-09-21 07:02] LABS: PHOSPHORUS 9.3 mg/dL (2.5-4.9)
--- NOTE | 2022-09-21 07:19 | NUR ---
RN CLOSING NOTES PATIENT IS IN BED,ASLEEP. ON MODERATE HIGH BACK REST POSITION. ON FULL CODE STATUS. STABLE VITAL SIGNS. HOOKED TO OXYGEN VIA NASAL CANNULA AT 2 LPM TOLERATING WELL.WITH IV ACCESS AT RFA #20G WITH NS AT 100ML/HR INFUSING WELL. NO S/S OF SHORTNESS OF BREATH NOTED AT THIS TIME. NO PAIN OR DISCOMFORT NOTED; STABLE VITAL SIGNS NOTED. WITH INDWELLING HENRIQUEZ CATHETER CONNECTED TO URINE BAG INFUSING WELL. CONTINENT WITH BEDPAN. ABLE TO VERBALIZED NEED. KEPT BED ON LOWER LOCKED POSITION. KEPT SIDE RAILS UP X 2 ALL THE TIME. KEPT CALL LIGHT WITHIN AT REACH. WILL ENDORSED TO METAL MINER FOR CALLY.
--- NOTE | 2022-09-21 07:27 | NUR ---
MS RN OPENING NOTE RECEIVED PT ASLEEP IN BED, EASILY AROUSED. PATIENT IS ALERT AND ORIENTED X2 WITH PERIODS OF CONFUSION, REDIRECTED AND REORIENTED PT NEEDED. PT ON O2 AT 2L/MIN VIA NASAL CANNULA, TOLERATING WELL. NO SOB NOTED AT THIS TIME. NOT IN ANY SIGN OF RESPIRATORY DISTRESS. IV ACCESS ON RFA G#20 INTACT AND PATENT WITH NS INFUSING AT 100ML/HR. SAFETY MEASURES INITIATED: BED IN LOWEST AND LOCKED POSITION, SIDE RAILS UP X2, AND CALL LIGHT WITHIN REACH. WILL CONTINUE TO MONITOR PT.
[2022-09-21] MEDS: PANTOPRAZOLE 40 MG TABLET.DR PO SCH (07:57)
[2022-09-21 08:00] VITALS: BP 103/57
--- NOTE | 2022-09-21 08:05 | NUR ---
RN NOTE CALLED DR. MORALES AND MADE HIM AWARE THAT PT'S BUN IS 161, CREATININE 7.0, AND POTASSIUM 5.6 AND IT'S TRENDING UP. PER DR. MORALES HE ASKED KORI REYES TO PLACE HD CATH ON THE. PT WILL HAVE DIALYSIS TODAY.
[2022-09-21] MEDS: GLUCERNA SHAKE 237 ML CAN PO SCH ×2 (08:47→16:49)
[2022-09-21] MEDS: AMLODIPINE BESYLATE 5 MG TABLET PO SCH (09:00)
[2022-09-21] MEDS: HEPARIN SODIUM, PORCINE 5000 UNITS/1 ML VIAL SQ SCH (09:00)
--- NOTE | 2022-09-21 09:00 | NUR ---
RN NOTE PT REMAINS A/O X2 WITH PERIODS OF CONFUSION. NOT ABLE TO GIVE CONSENT FOR A TEMPORARY HD CATH PLACEMENT AND DIALYSIS. PT ALSO DOES NOT HAVE ANY FAMILY OR ANYONE TO GIVE CONSENT FOR THE PROCEDURE. MADE DR. ROCHA AWARE AND PER MD, SHE IS AWARE OF PT NOT ABLE TO GIVE CONSENT AND NO FAMILY AVAILABLE BUT PROCEED WITH TEMPORARY HD CATH PLACEMENT AND DIALYSIS TO AVOID RISK OF MAJOR MORBIDITY OR MORTALITY OF AZOTEMIA AND FLUID OVERLOAD.
[2022-09-21] MEDS: CHOLECALCIFEROL (VITAMIN D 3) 400 UNIT TABLET PO SCH (09:10)
[2022-09-21] MEDS: TAMSULOSIN 0.4 MG CAP.SR.24H PO SCH (09:10)
[2022-09-21] MEDS: FLUOXETINE HCL 20 MG CAPSULE PO SCH (09:10)
[2022-09-21] MEDS: INSULIN GLARGINE, 100 UNIT/ML CARTRIDGE SQ SCH ×2 (09:12→22:00)
[2022-09-21] MEDS: ATORVASTATIN 40 MG TABLET PO SCH (09:16)
[2022-09-21] MEDS: ACETAMINOPHEN ES 500 MG TABLET PO PRN ×2 (09:16→23:11)
--- NOTE | 2022-09-21 11:55 | NUR ---
RN NOTE SAMAN CHARGED NURSE RECEIVED A CALL FROM DR. CATES, PER SAMAN, DR. CATES WILL BE PLACING THE TEMPORARY HD CATH ON THE PT AT BEDSIDE AND ORDERED 1000U/ML HEPARIN FLUSH 5ML AND PREPARE SUPPLIES. ORDERS CARRIED OUT BY JEREMÍAS DAVISON NURSE.
[2022-09-21] MEDS ORDERED: HEPARIN SODIUM, PORCINE 1000 UNIT/1 ML VIAL IV ONE (12:00)
[2022-09-21] MEDS ORDERED: HEPARIN-LOCK FLUSH PORCINE PF 100 UNITS/1 ML (10 ML)DISP.SYRIN IVF ONE (12:00)
[2022-09-21] MEDS: INSULIN REGULAR, HUMAN 100 UNIT/ML 3 ML VIAL SQ PRN ×2 (12:13→16:53)
--- NOTE | 2022-09-21 12:50 | NUR ---
RN NOTE PT'S TEMPORARY HD CATH DONE BY DR. CATES AT BEDSIDE ON S/P RIGHT FEMORAL NON TUNNELLED CATH. DRESSING C/D/I WITH NO ACTIVE BLEEDING NOTED. PER DR. CATES HD CATH IS OK TO USE. Addendum: 09/21/22 at 1308 by BLAS VARGHESE RN ADDENDUM: MADE DR. MORALES AWARE OF TEMPORARY HD CATH PLACEMENT AND OK TO USE. AWAITING FOR ORDERS FOR DIALYSIS.
--- NOTE | 2022-09-21 12:56 | NUR ---
RN NOTE PT WAS SEEN BY DR. ROCHA, NURSE MADE MD AWARE THAT PT'S HGB DROPPED FROM 8.7 YESTERDAY 09/20/22 TO 7.6 TODAY. CLARIFIED IF OK TO STILL GIVE HEPARIN MEDICATIONS. PER DR. ROCHA TO DC HEPARIN SUB Q MEDICATION AND START SCD DVT PUMPS. ORDERS CARRIED OUT.
[2022-09-21 12:58] LABS: BAND % (MANUAL) 3 % (0.0-5.0); EOSINOPHILS % (MANUAL) 0 % (0-4); LYMPHOCYTES % (MANUAL) 4 % (16-48); MONOCYTES % (MANUAL) 9 % (0-11.0); NEUTROPHILS % (MANUAL) 84 (42-76)
[2022-09-21 16:00] VITALS: BP 103/45
[2022-09-21] MEDS: IV NS 0.9% 1,000 ML IV SCH (16:37)
[2022-09-21] MEDS: CEFTRIAXONE 1 G in IV D5W 50 ML IV SCH (17:18)
--- NOTE | 2022-09-21 17:30 | NUR ---
RN NOTE HD STARTED BY DIALYSIS NURSE PRUDENCE VIA RIGHT FEMORAL HD CATH. VITAL SIGNS: BP 101/58, PULSE 68, R 18. TEMP 98.2, SPO2 ON O2 2L/MIN VIA NASAL CANNULA IS 98%.
--- NOTE | 2022-09-21 18:32 | NUR ---
MS RN CLOSING NOTE PT ASLEEP IN BED, EASILY AROUSED. PATIENT IS ALERT AND ORIENTED X2 WITH PERIODS OF CONFUSION, REDIRECTED AND REORIENTED PT NEEDED. PT ON O2 AT 2L/MIN VIA NASAL CANNULA, TOLERATING WELL. NO SOB NOTED AT THIS TIME. NOT IN ANY SIGN OF RESPIRATORY DISTRESS. IV ACCESS ON RIGHT HAND G#22 WITH NS INFUSING AT 100ML/HR. AND IV ACCESS ON RFA G#20 SALINE LOCK. RIGHT FEMORAL NON TUNNULLED HD CATH IN PLACE WITH ONGOING DIALYSIS WITH DIALYSIS NURSE PRUDENCE. ALL NEEDS ATTENDED. KEPT CLEAN AND COMFORTABLE AT ALL TIMES. TURNED AND REPOSITIONED Q2HRS AND NEEDED. SAFETY MEASURES IN PLACE: BED IN LOWEST AND LOCKED POSITION, SIDE RAILS UP X2, AND CALL LIGHT WITHIN REACH. WILL ENDORSE TO SHALE PLANER OPERATOR HELPER NURSE FOR CALLY.
--- NOTE | 2022-09-21 19:15 | NUR ---
MS RN OPENING NOTES: RECEIVED PATIENT AWAKE IN BED, BED IN LOW POSITION, CALL LIGHTS WITHIN REACH, NO COMPLAIN OF PAIN AND DISCOMFORT AT THIS TIME, ON O2 INHALATION AT 2LPM SATURATING WELL, CURRENTLY ON DIALYSIS HD PORT AT RIGHT FEMORAL NONE TUNNELED CATHETER, IV LINE AT RIGHT HAND #22 WITH ONGOING NSS@100ML/HR INFUSING WELL, PATIENT IS A/OX 2-3 ON BED REST ABLE TO MAKE NEEDS KNOWN, ON HENRIQUEZ CATHETER-300CC URINE OUTPUT, PATIENT KEPT CLEAN AND DRY ALL NEEDS MET WILL CONTINUE TO MONITOR
--- NOTE | 2022-09-21 19:55 | NUR ---
RN NOTES: DIALYSIS DONE AT 1935 WITH 1 LTR OUTPUT, PATIENT REMAINS STABLE WILL CONTINUE TO MONITOR.
[2022-09-21 20:00] VITALS: BP 97/53
[2022-09-21] MEDS: MIRTAZAPINE 15 MG TABLET PO SCH (21:51)
--- NOTE | 2022-09-21 22:09 | NUR ---
RN NOTES: BLOOD SUGAR- 121 LONG ACTING INSULIN NOT GIVEN PATIENT HAS DIALYSIS TOMM IN AM, AND HX OF HYPOGLYCEMIA
[2022-09-22] MEDS: IV NS 0.9% 1,000 ML IV SCH (02:57)
[2022-09-22] MEDS: ACETAMINOPHEN ES 500 MG TABLET PO PRN (04:57)
--- NOTE | 2022-09-22 06:47 | NUR ---
MS RN CLOSING NOTES: PATIENT SLEEP IN BED COMFORTABLY, AROUSABLE TO VERBAL STIMULI, BED IN LOW POSITION, CALL LIGHTS WITHIN REACH, NO COMPLAIN OF PAIN AND DISCOMFORT AT THIS TIME, ON O2 INHALATION AT 2LPM, SATURATING WELL, ON HENRIQUEZ CATHETER-1000ML OUT, PATIENT IS A/OX1-2 ABLE TO MAKE NEEDS KNOWN, ON PAIN MANAGEMENT, REPOSITION, KEPT CLEAN AND DRY ALL NEEDS MET ENDORSE TO INCOMING SHIFT.
[2022-09-22] MEDS: PANTOPRAZOLE 40 MG TABLET.DR PO SCH (07:11)
--- NOTE | 2022-09-22 07:25 | NUR ---
MS RN OPENING NOTES PATIENT RECEIVED AWAKE IN BED IN NO ACUTE SIGNS OF DISTRESS. HOB ELEVATED. A/O X 2-3. ABLE TO MAKE NEEDS KNOWN, DENIES PAIN OR ANY DISCOMFORTS AT THIS TIME. ON 02 VIA N/C @ 2LPM, TOLERATING WELL, BREATHING EVEN AND UNLABORED. IV ACCESS ON RFA #20G INTACT WITH IVF OF NS @ 100ML/HR INFUSING WELL, NO S/S OF INFILTRATION AT SITE NOTED. PT ALSO HAS RIGHT HAND G#22 SL. INTACT AND PATENT. PT WITH RIGHT FEMORAL HD CATH IN PLACE WITH DRESSING C/D/I. HENRIQUEZ IN PLACE WITH SLIGHTLY CLOUDY YELLOW URINE OUTPUT NOTED. SAFETY MEASURES IN PLACE: BED IN LOWEST AND LOCKED POSITION; CALL LIGHT AND TRAY TABLE WITHIN EASY REACH AND SIDE RAILS UP X 2. WILL CONTINUE MONITOR THE PATIENT ACCORDINGLY.
[2022-09-22] MEDS: BLOOD SUGAR DIAGNOSTIC 1 EACH STRIP VI SCH ×4 (07:42→21:21)
[2022-09-22 08:00] VITALS: BP_SYST 113; BP_SYST 99; BP_DIAS 53; BP_DIAS 55
[2022-09-22] MEDS: ATORVASTATIN 40 MG TABLET PO SCH (08:09)
[2022-09-22] MEDS: ACETAMINOPHEN 325 MG TABLET PO PRN ×2 (08:09→21:08)
[2022-09-22] MEDS: GLUCERNA SHAKE 237 ML CAN PO SCH ×2 (08:09→17:11)
[2022-09-22] MEDS: CHOLECALCIFEROL (VITAMIN D 3) 400 UNIT TABLET PO SCH (08:10)
[2022-09-22] MEDS: TAMSULOSIN 0.4 MG CAP.SR.24H PO SCH (08:10)
[2022-09-22] MEDS: FLUOXETINE HCL 20 MG CAPSULE PO SCH (08:10)
[2022-09-22] MEDS: AMLODIPINE BESYLATE 5 MG TABLET PO SCH (08:10)
[2022-09-22 08:33] LABS: EOSINOPHILS % (AUTO) 0.3 % (0.0-6.0); HEMATOCRIT 22 % (39-51); LYMPHOCYTES # (AUTO) 0.5 K/uL (0.8-4.8); LYMPHOCYTES % (AUTO) 3.5 % (20.0-44.0); MEAN CORPUSCULAR HGB CONC 31 g/dl (31.0-36.0); MEAN CORPUSCULAR VOLUME 85 fL (80-96); MONOCYTES # (AUTO) 1.5 K/uL (0.1-1.30); MONOCYTES % (AUTO) 11.5 % (2.0-12.0); NEUTROPHILS # (AUTO) 11.3 K/uL (1.8-8.9); NEUTROPHILS % (AUTO) 84.7 % (43.0-81.0); PLATELET COUNT (AUTO) 191 K/uL (150-450); RED BLOOD CELL COUNT(AUTO) 2.63 MIL/uL (4.5-6.0); WHITE BLOOD COUNT (AUTO) 13.3 K/uL (4.3-11.0)
[2022-09-22 08:43] LABS: CREATININE 6.2 mg/dL (0.6-1.3); MAGNESIUM 2.4 mg/dL (1.8-2.4); POTASSIUM 4.7 mmol/L (3.5-5.1)
[2022-09-22] MEDS: INSULIN GLARGINE, 100 UNIT/ML CARTRIDGE SQ SCH ×2 (09:25→21:22)
--- NOTE | 2022-09-22 10:16 | NUR ---
RN NOTES RECEIVED CALL FROM LAB THAT PT HAS LOW HGB 7.0, DR ROCHA ON UNIT AND MADE AWARE WITH ORDER TO INFUSE PRBC X1 TODAY WITH HD IF POSSIBLE. PT SIGNED BLOOD TRANSFUSION CONSENT.
--- NOTE | 2022-09-22 10:18 | NUR ---
WOUND CARE CONSULT: RECEIVED CONSULT FOR PURULENT DRAINAGE FROM [facility]. PT PRESENTS WITH SWELLING TO PENIS AND EROSION. PURULENT DRAINAGE IS NOTED FROM OPENING. PT HAS HENRIQUEZ CATHETER. DISCUSSED WITH NURSING STAFF AND CRANE OPERATOR. RN TO NOTIFY PMD. PT NOTED TO BE INCONTINENT OF STOOL. DISCUSSED SKIN PROTECTION WITH NURSING STAFF. MD IN AGREEMENT WITH PLAN OF CARE.
[2022-09-22] MEDS: INSULIN REGULAR, HUMAN 100 UNIT/ML 3 ML VIAL SQ PRN ×2 (11:15→17:25)
--- NOTE | 2022-09-22 11:28 | NUR ---
RN NOTES DR MORALES SEEN PT WITH ORDER TO DO TIBC AND IRON PANEL.
[2022-09-22 11:40] LABS: IRON, SERUM 15 ug/dl (50-175); TOTAL IRON BINDING CAPACITY 130 ug/dl (250-450)
[2022-09-22 13:20] VITALS: BP 96/53
--- NOTE | 2022-09-22 13:40 | NUR ---
RN NOTES BLOOD TRANSFUSION OF PRBC X1 VERIFIED BY ANOTHER RN TEODORA. BLOOD HANDED TO PLASTIC STRAIGHTENING ROLL OPERATOR PRUDENCE AND STARTED AT 1336. PRE BLOOD TRANSFUSION V/S TAKEN AND RECORDED. WILL MONITOR FOR ANY ALLERGIC/ADVERSE REACTIONS.
--- NOTE | 2022-09-22 14:35 | NUR ---
RN NOTES PT WITH CRITICAL HIGH PROCALCITONIN 6.5 TODAY. RESERVATION AGENT MARYCRUZA MADE AWARE WITH ORDER TO D/C ROCEPHIN IV AND START CEFEPIME 1 GM IV Q 8HRS. WILL CARRY OUT ORDER.
[2022-09-22 14:45] VITALS: BP 105/63
--- NOTE | 2022-09-22 14:53 | NUR ---
RN NOTES BLOOD TRANSFUSION OF 1 PRBC X1 WITH HD COMPLETED AND PT TOLERATED WELL. NO ADVERSE OR ALLERGIC REACTIONS NOTED. HEMODIALYSIS WITH 753 OUT. DRESSING ON RIGHT FEMORAL HD CATH C/D//I. NO ACTIVE BLEEDING NOTED. WILL CONTINUE TO MONITOR.
[2022-09-22] MEDS: IV NS 0.9% 1,000 ML IV PRN (15:09)
--- NOTE | 2022-09-22 15:35 | NUR ---
RN NOTES RECEIVED CALL FROM PHARMACIST THAT PT WILL RECEIVED CEFEPIME 1 GM Q 24HRS ONLY INSTEAD OF Q 8HRS BECAUSE PT IS RECEIVING HD. HE STATED THAT HE WILL LEAVE A MESSAGE TO SERVICE TESTER BRETT.
[2022-09-22] MEDS: CEFEPIME 1 GM in IV D5W 50 ML IV SCH (15:48)
[2022-09-22] MEDS ORDERED: CEFEPIME 1 GM VIAL IV SCH (18:00)
[2022-09-22 18:25] VITALS: BP 109/60
--- NOTE | 2022-09-22 18:51 | NUR ---
MS RN CLOSING NOTES PATIENT IN BED AWAKE AND WATCHING TV AT THIS TIME. HOB ELEVATED. A/O X 2-3. ABLE TO MAKE NEEDS KNOWN. MAINTAINED ON 02 VIA N/C @ 2LPM, TOLERATING WELL, BREATHING EVEN AND UNLABORED. IV ACCESS ON RFA #20G INTACT WITH IVF OF NS @ 100ML/HR INFUSING WELL, NO S/S OF INFILTRATION AT SITE NOTED. PT ALSO HAS RIGHT HAND G#22 SL. INTACT AND PATENT. PT WITH RIGHT FEMORAL HD CATH IN PLACE WITH DRESSING C/D/I. HENRIQUEZ IN PLACE WITH SLIGHTLY CLOUDY YELLOW URINE OUTPUT NOTED, HENRIQUEZ CARE DONE. PT TURNED AND REPOSITIONED Q 2HRS AND PRN. ALL NEEDS AND CARE PROVIDED WELL. ALL SAFETY MEASURES KEPT IN PLACE: BED IN LOWEST AND LOCKED POSITION, CALL LIGHT AND TRAY TABLE WITHIN EASY REACH AND SIDE RAILS UP X 2. WILL ENDORSE CALLY TO GENERAL LOT ATTENDANT NURSE.
--- NOTE | 2022-09-22 19:41 | NUR ---
MS RN OPENING NOTE PATIENT IN BED AWAKE AND WATCHING TV AT THIS TIME. HOB ELEVATED. A/O X 2-3. ABLE TO MAKE NEEDS KNOWN. MAINTAINED ON 02 VIA N/C @ 2LPM, TOLERATING WELL, BREATHING EVEN AND UNLABORED. IV ACCESS ON RFA #20G INTACT WITH IVF OF NS @ 100ML/HR INFUSING WELL, NO S/S OF INFILTRATION AT SITE NOTED. PT ALSO HAS RIGHT HAND G#22 SL. INTACT AND PATENT. PT WITH RIGHT FEMORAL HD CATH IN PLACE WITH DRESSING C/D/I. HENRIQUEZ IN PLACE WITH SLIGHTLY CLOUDY YELLOW URINE OUTPUT NOTED. ALL SAFETY MEASURES KEPT IN PLACE: BED IN LOWEST AND LOCKED POSITION, CALL LIGHT AND TRAY TABLE WITHIN EASY REACH AND SIDE RAILS UP X 2.
[2022-09-22 20:00] VITALS: BP 115/47
[2022-09-22] MEDS: MIRTAZAPINE 15 MG TABLET PO SCH (21:08)
[2022-09-22] MEDS: *INSULIN REGULAR(HUMULIN R)HUM 100 UNIT/ML VIAL SQ PRN (21:23)
--- NOTE | 2022-09-23 00:57 | NUR ---
RN NOTE FAXED ORDER FOR LIDOCAINE JELLY TO [employer] MATE . CALLED TO VERIFY IT WAS RECEIVED. AWAITING MEDICATION. NOTED PT HAVING PAIN AT IV SITE RFA #20G REMOVED ARM ELEVATED. CATHETER REMOVED INTACT.
[2022-09-23] MEDS ORDERED: LIDOCAINE 2% JEL UROJET 10 ML MM ONE (01:00)
--- NOTE | 2022-09-23 02:50 | NUR ---
RN NOTE PER PATIENT CARE ASSISTANT LIDOCAINE JELLY NOT AVAILABLE AT THIS TIME. AUTOMOTIVE PORTER INFORMED RECEIVED NEW ORDER FOR MORPHINE.
[2022-09-23] MEDS: IV NS 0.9% 1,000 ML IV PRN (03:09)
[2022-09-23] MEDS: MORPHINE SULFATE INJ 2 MG/ML DISP.SYRIN IV PRN (03:09)
--- NOTE | 2022-09-23 03:19 | NUR ---
RN NOTE PRN MORPHINE GIVEN FOR 8/10 PAIN TOLERATED WELL.
[2022-09-23] MEDS: DEXTROSE 50%-WATER 50 ML DISP.SYRIN IV PRN (06:28)
[2022-09-23 06:56] LABS: BASOPHILS % (AUTO) 0.1 % (0.0-2.0); EOSINOPHILS % (AUTO) 0.2 % (0.0-6.0); HEMATOCRIT 23 % (39-51); HEMOGLOBIN 7.4 g/dL (13.5-17.5); LYMPHOCYTES # (AUTO) 0.5 K/uL (0.8-4.8); MEAN CORPUSCULAR HGB CONC 32 g/dl (31.0-36.0); MEAN CORPUSCULAR VOLUME 85 fL (80-96); MONOCYTES # (AUTO) 1.2 K/uL (0.1-1.30); MONOCYTES % (AUTO) 7.7 % (2.0-12.0); NEUTROPHILS # (AUTO) 13.9 K/uL (1.8-8.9); PLATELET COUNT (AUTO) 180 K/uL (150-450); WHITE BLOOD COUNT (AUTO) 15.6 K/uL (4.3-11.0)
[2022-09-23] MEDS: BLOOD SUGAR DIAGNOSTIC 1 EACH STRIP VI SCH ×4 (06:59→22:04)
[2022-09-23 07:00] VITALS: BP 107/57
--- NOTE | 2022-09-23 07:00 | NUR ---
MS RN OPENING NOTE PATIENT IN BED AWAKE, A/O X 2-3. ABLE TO MAKE NEEDS KNOWN. MAINTAINED ON 02 VIA N/C @ 2LPM, TOLERATING WELL, BREATHING EVEN AND UNLABORED. IV ACCESS ON RFA #20G INTACT WITH IVF OF NS @ 100ML/HR INFUSING WELL, NO S/S OF INFILTRATION AT SITE NOTED. PT ALSO HAS LEFT HAND G#22 SL. INTACT AND PATENT. PT WITH RIGHT FEMORAL HD CATH IN PLACE WITH DRESSING C/D/I. HENRIQUEZ IN PLACE WITH SLIGHTLY CLOUDY YELLOW URINE OUTPUT NOTED. ALL SAFETY MEASURES KEPT IN PLACE: BED IN LOWEST AND LOCKED POSITION, CALL LIGHT AND TRAY TABLE WITHIN EASY REACH AND SIDE RAILS UP X 2.
--- NOTE | 2022-09-23 07:00 | NUR ---
RN CLOSING NOTE PT AWAKE IN BED ALERT X 2-3 WITH EPISODES OF CONFUSION. PT BS THIS MORNING WAS 38 PRN DEXTROSE 50% GIVEN REASSESSMENT DONE SUGAR IS NOW 130. PT IN NO DISTRESS OR DISCOMFORT AT THIS TIME. HOB ELEVATED FOR SAFETY. TABLE WITHIN REACH. WILL ENDORSE CARE TO DAY SHIFT NURSE.
[2022-09-23] MEDS: PANTOPRAZOLE 40 MG TABLET.DR PO SCH (08:29)
[2022-09-23] MEDS: ATORVASTATIN 40 MG TABLET PO SCH (08:29)
[2022-09-23] MEDS: CHOLECALCIFEROL (VITAMIN D 3) 400 UNIT TABLET PO SCH (08:29)
[2022-09-23] MEDS: TAMSULOSIN 0.4 MG CAP.SR.24H PO SCH (08:29)
[2022-09-23] MEDS: FLUOXETINE HCL 20 MG CAPSULE PO SCH (08:29)
[2022-09-23] MEDS: AMLODIPINE BESYLATE 5 MG TABLET PO SCH (08:33)
[2022-09-23 08:35] LABS: CREATININE 5.4 mg/dL (0.6-1.3); MAGNESIUM 2.2 mg/dL (1.8-2.4); PHOSPHORUS 6.8 mg/dL (2.5-4.9); POTASSIUM 4.5 mmol/L (3.5-5.1)
[2022-09-23] MEDS: INSULIN GLARGINE, 100 UNIT/ML CARTRIDGE SQ SCH ×2 (09:25→22:00)
[2022-09-23] MEDS: GLUCERNA SHAKE 237 ML CAN PO SCH ×2 (09:44→17:38)
[2022-09-23 16:00] VITALS: BP 106/56
[2022-09-23] MEDS: CEFEPIME 1 GM in IV D5W 50 ML IV SCH (16:29)
--- NOTE | 2022-09-23 17:20 | NUR ---
Patient's blood glucose was low initially at 41. Improved to 61 & 93 after giving 4 oz orange juice and 120cc of D10 in a span of 30 minutes. Charge nurse MD jesse informed.
--- NOTE | 2022-09-23 18:20 | NUR ---
RN CLOSING NOTE PT AWAKE IN BED ALERT X 2-3 WITH EPISODES OF CONFUSION. PT IN NO DISTRESS OR DISCOMFORT AT THIS TIME. HOB ELEVATED FOR SAFETY. TABLE WITHIN REACH. PATIENT AWAITING HEMODIALYSIS TONIGHT SCHEDULED WILL ENDORSE CARE TO BAGEL MAKER NURSE.
--- NOTE | 2022-09-23 19:49 | NUR ---
RN OPENING NOTE PT AWAKE IN BED ALERT X 2-3 WITH EPISODES OF CONFUSION. PT IN NO DISTRESS OR DISCOMFORT AT THIS TIME. HOB ELEVATED FOR SAFETY. TABLE WITHIN REACH. PATIENT IS HAVING HEMODIALYSIS AT THIS TIME.
[2022-09-23 20:35] VITALS: BP 152/66
[2022-09-23] MEDS: MIRTAZAPINE 15 MG TABLET PO SCH (22:00)
--- NOTE | 2022-09-23 22:25 | NUR ---
RN NOTE PT FINISHED WITH DIALYSIS WITH OUTPUIT OF 1L PT BS CHECKED IT WAS 66 SANDWICH PROVIDED.
[2022-09-24] MEDS: IV NS 0.9% 1,000 ML IV PRN (02:09)
[2022-09-24] MEDS: MORPHINE SULFATE INJ 2 MG/ML DISP.SYRIN IV PRN (02:09)
--- NOTE | 2022-09-24 02:13 | NUR ---
RN NOTE PRN MORPHINE GIVEN FOR PAIN TOLERATED WELL.
[2022-09-24] MEDS: INSULIN REGULAR, HUMAN 100 UNIT/ML 3 ML VIAL SQ PRN ×2 (06:14→17:24)
--- NOTE | 2022-09-24 07:45 | NUR ---
MS RN OPENING NOTE PATIENT IN BED AWAKE, A/O X 2-3. ABLE TO MAKE NEEDS KNOWN. MAINTAINED ON 02 VIA N/C @ 2LPM, TOLERATING WELL, BREATHING EVEN AND NON-LABORED. IV ACCESS ON RFA #20G INTACT WITH IVF OF NS @ 100ML/HR INFUSING WELL, NO S/S OF INFILTRATION AT SITE NOTED. PT ALSO HAS LEFT HAND G#22 SL. INTACT AND PATENT. PT WITH RIGHT FEMORAL HD CATH IN PLACE WITH DRESSING C/D/I. SAFETY MEASURES IN PLACE, WITH BED LOCKED AND LOWEST POSITION. CALL LIGHT AND TRAY WITHIN EASY REACH. SIDE RAILS UP X 2. BED ALARM ON, WILL CONTINUE WITH THE PLAN OF CARE.
[2022-09-24] MEDS: BLOOD SUGAR DIAGNOSTIC 1 EACH STRIP VI SCH ×4 (08:26→22:29)
[2022-09-24] MEDS: PANTOPRAZOLE 40 MG TABLET.DR PO SCH (08:26)
[2022-09-24] MEDS: GLUCERNA SHAKE 237 ML CAN PO SCH (08:33)
[2022-09-24] MEDS: FLUOXETINE HCL 20 MG CAPSULE PO SCH (08:49)
[2022-09-24] MEDS: CHOLECALCIFEROL (VITAMIN D 3) 400 UNIT TABLET PO SCH (08:50)
[2022-09-24] MEDS: TAMSULOSIN 0.4 MG CAP.SR.24H PO SCH (08:50)
[2022-09-24] MEDS: ATORVASTATIN 40 MG TABLET PO SCH (08:50)
[2022-09-24] MEDS: AMLODIPINE BESYLATE 5 MG TABLET PO SCH (09:00)
[2022-09-24 10:28] LABS: BASOPHILS # (AUTO) 0.1 K/uL (0.0-0.2); BASOPHILS % (AUTO) 0.6 % (0.0-2.0); EOSINOPHILS % (AUTO) 0.2 % (0.0-6.0); HEMATOCRIT 22 % (39-51); HEMOGLOBIN 7.1 g/dL (13.5-17.5); LYMPHOCYTES # (AUTO) 0.5 K/uL (0.8-4.8); LYMPHOCYTES % (AUTO) 3.6 % (20.0-44.0); MEAN CORPUSCULAR HGB CONC 33 g/dl (31.0-36.0); MEAN CORPUSCULAR VOLUME 85 fL (80-96); MONOCYTES # (AUTO) 0.3 K/uL (0.1-1.30); MONOCYTES % (AUTO) 2.5 % (2.0-12.0); NEUTROPHILS # (AUTO) 12.2 K/uL (1.8-8.9); NEUTROPHILS % (AUTO) 93.1 % (43.0-81.0); PLATELET COUNT (AUTO) 155 K/uL (150-450); RED BLOOD CELL COUNT(AUTO) 2.57 MIL/uL (4.5-6.0); WHITE BLOOD COUNT (AUTO) 13.1 K/uL (4.3-11.0)
[2022-09-24 10:47] LABS: CALCIUM, SERUM 7.9 mg/dL (8.5-10.1); CREATININE 3.4 mg/dL (0.6-1.3); POTASSIUM 3.7 mmol/L (3.5-5.1)
[2022-09-24] MEDS ORDERED: NEPRO VAN 237 ML CAN PO PRN (13:00)
[2022-09-24] MEDS: CEFEPIME 1 GM in IV D5W 50 ML IV SCH (14:12)
--- NOTE | 2022-09-24 18:50 | NUR ---
MS RN CLOSING NOTE PATIENT AWAKE IN BED. A/O X 2. ABLE TO MAKE NEEDS KNOWN. MAINTAINED ON 02 VIA NC @ 2LPM, TOLERATING WELL, BREATHING EVEN AND NON LABORED. IV ACCESS ON L HAND #22G RUNNING NS @ 100ML/HR INFUSING WELL, NO S/S OF INFILTRATION AT SITE NOTED. INTACT AND PATENT. PT WITH RIGHT FEMORAL HD CATH IN PLACE WITH DRESSING C/D/I. HD DONE, 1.5L OUT. PT TURNED AND REPOSITIONED Q 2HRS AND PRN. ALL NEEDS AND CARE PROVIDED WELL. ALL SAFETY MEASURES KEPT IN PLACE: BED IN LOWEST AND LOCKED POSITION, CALL LIGHT AND TRAY TABLE WITHIN EASY REACH AND SIDE RAILS UP X 2. WILL ENDORSE CALLY TO INTERIOR PLANT CARETAKER NURSE.
[2022-09-24 20:00] VITALS: BP 109/54
[2022-09-24] MEDS: *INSULIN REGULAR(HUMULIN R)HUM 100 UNIT/ML VIAL SQ PRN (22:31)
--- NOTE | 2022-09-24 22:33 | NUR ---
ACCU CHECK Bld glucose 136mg/dl. Given insulin per SS parameters
[2022-09-24] MEDS: INSULIN GLARGINE, 100 UNIT/ML CARTRIDGE SQ SCH (22:35)
--- NOTE | 2022-09-25 05:37 | NUR ---
END OF SHIFT REPORT Patient in bed, Alert Oriented x2 confused. Oxygen sat high 90's in 2L NC. Left hand IV line intact. IVF continuous, good appetite. Right femoral cath dressing clean and dry. On IV abx Afebrile. No BM during the shift. Incontinent care. Dialysis treatment as scheduled. Fall precaution maintained. Will endorse to oncoming RN.
[2022-09-25 06:36] LABS: BASOPHILS % (AUTO) 0.2 % (0.0-2.0); EOSINOPHILS % (AUTO) 0.3 % (0.0-6.0); HEMATOCRIT 21 % (39-51); LYMPHOCYTES # (AUTO) 0.6 K/uL (0.8-4.8); LYMPHOCYTES % (AUTO) 3.5 % (20.0-44.0); MEAN CORPUSCULAR HGB CONC 32 g/dl (31.0-36.0); MEAN CORPUSCULAR VOLUME 85 fL (80-96); MONOCYTES % (AUTO) 6.3 % (2.0-12.0); NEUTROPHILS # (AUTO) 14.5 K/uL (1.8-8.9); NEUTROPHILS % (AUTO) 89.7 % (43.0-81.0); PLATELET COUNT (AUTO) 228 K/uL (150-450); RED BLOOD CELL COUNT(AUTO) 2.47 MIL/uL (4.5-6.0); WHITE BLOOD COUNT (AUTO) 16.1 K/uL (4.3-11.0)
[2022-09-25 06:47] LABS: HEMOGLOBIN 6.7 g/dL (13.5-17.5)
[2022-09-25 06:49] LABS: CALCIUM, SERUM 8.1 mg/dL (8.5-10.1); CREATININE 4.2 mg/dL (0.6-1.3); POTASSIUM 4.1 mmol/L (3.5-5.1)
[2022-09-25] MEDS: BLOOD SUGAR DIAGNOSTIC 1 EACH STRIP VI SCH ×4 (06:52→22:18)
[2022-09-25] MEDS: INSULIN REGULAR, HUMAN 100 UNIT/ML 3 ML VIAL SQ PRN ×3 (06:54→17:43)
--- NOTE | 2022-09-25 07:01 | NUR ---
CRITICAL VALUE/ NO URINE OUTPUT Patient has not voided more than 8 hrs. Bladder scan showed 581ml. Patient denies bladder discomfort. Critical lab value reported by lab at 0650, H/H 6.02/20 No active bleeding. Notified CHANNEL CEMENTER Atiya, awaiting orders. Will endorse to oncoming RN.
--- NOTE | 2022-09-25 07:40 | NUR ---
MS RN OPENING NOTE PATIENT IN BED AWAKE, A/O X 2. ABLE TO MAKE NEEDS KNOWN. MAINTAINED ON 02 VIA N/C @ 2LPM, TOLERATING WELL, BREATHING EVEN AND NON-LABORED. IV ACCESS ON L HAND #22G INTACT WITH IVF OF NS @ 100ML/HR INFUSING WELL, NO S/S OF INFILTRATION AT SITE NOTED. . INTACT AND PATENT. PT WITH RIGHT FEMORAL HD CATH IN PLACE WITH DRESSING C/D/I. SAFETY MEASURES IN PLACE, WITH BED LOCKED AND LOWEST POSITION. CALL LIGHT AND TRAY WITHIN EASY REACH. SIDE RAILS UP X 2. BED ALARM ON, WILL CONTINUE WITH THE PLAN OF CARE.
[2022-09-25] MEDS: FLUOXETINE HCL 20 MG CAPSULE PO SCH (08:31)
[2022-09-25] MEDS: PANTOPRAZOLE 40 MG TABLET.DR PO SCH (08:31)
[2022-09-25] MEDS: TAMSULOSIN 0.4 MG CAP.SR.24H PO SCH (08:31)
[2022-09-25] MEDS: CHOLECALCIFEROL (VITAMIN D 3) 400 UNIT TABLET PO SCH (08:31)
[2022-09-25] MEDS: ATORVASTATIN 40 MG TABLET PO SCH (08:33)
[2022-09-25] MEDS: AMLODIPINE BESYLATE 5 MG TABLET PO SCH (08:37)
--- NOTE | 2022-09-25 11:00 | NUR ---
RN NOTE HGB LEVEL 6.7, DR KM BARRAZA NOTIFIED, ORDERED 1 UNIT PRBC.
[2022-09-25] MEDS: CEFEPIME 1 GM in IV D5W 50 ML IV SCH (14:00)
[2022-09-25 14:04] LABS: BAND % (MANUAL) 4 % (0.0-5.0); LYMPHOCYTES % (MANUAL) 3 % (16-48); MONOCYTES % (MANUAL) 6 % (0-11.0); NEUTROPHILS % (MANUAL) 87 (42-76)
--- NOTE | 2022-09-25 14:30 | NUR ---
RN NOTE BLADDER SCAN SHOWED 450ML, DR KM BARRAZA AWARE, NO NEW ORDER, PT DENIES BLADDER DISCOMFORT. WILL CONTINUE TO MONITOR.
[2022-09-25 14:55] VITALS: BP 110/52
[2022-09-25 15:10] VITALS: BP 109/58
[2022-09-25 15:25] VITALS: BP 109/59
[2022-09-25 15:55] VITALS: BP 120/74
[2022-09-25 16:55] VITALS: BP 119/56
--- NOTE | 2022-09-25 17:55 | NUR ---
RN NOTE 1 UNIT PRBC GIVEN TO PT, STAYED WITH THE PATIENT FOR THE FIRST 30 MINUTES. VS TAKEN AND RECORDED. PT TOLERATED WELL. WILL CONTINUE TO MONITOR.
--- NOTE | 2022-09-25 18:37 | NUR ---
MS RN CLOSING NOTE PATIENT AWAKE IN BED. A/O X 2-3. ABLE TO MAKE NEEDS KNOWN. MAINTAINED ON 02 VIA NC @ 2LPM, TOLERATING WELL, BREATHING EVEN AND NON LABORED. IV ACCESS ON L HAND #22G RUNNING NS @ 100ML/HR INFUSING WELL, NO S/S OF INFILTRATION AT SITE NOTED. INTACT AND PATENT. PT WITH RIGHT FEMORAL HD CATH IN PLACE WITH DRESSING C/D/I. HD DONE, 1L OUT. 1 UNIT PRBC GIVEN TO PT, TOLERATED WELL. PT TURNED AND REPOSITIONED Q 2HRS AND PRN. ALL NEEDS AND CARE PROVIDED WELL. ALL SAFETY MEASURES KEPT IN PLACE: BED IN LOWEST AND LOCKED POSITION, CALL LIGHT AND TRAY TABLE WITHIN EASY REACH AND SIDE RAILS UP X 2. WILL ENDORSE TO TAILOR FITTER NURSE FOR CALLY.
[2022-09-25 19:53] LABS: BASOPHILS % (AUTO) 0.2 % (0.0-2.0); EOSINOPHILS % (AUTO) 0.2 % (0.0-6.0); HEMATOCRIT 24 % (39-51); HEMOGLOBIN 7.5 g/dL (13.5-17.5); LYMPHOCYTES # (AUTO) 0.7 K/uL (0.8-4.8); LYMPHOCYTES % (AUTO) 3.6 % (20.0-44.0); MEAN CORPUSCULAR HGB CONC 32 g/dl (31.0-36.0); MEAN CORPUSCULAR VOLUME 86 fL (80-96); MONOCYTES % (AUTO) 5.5 % (2.0-12.0); NEUTROPHILS # (AUTO) 16.3 K/uL (1.8-8.9); NEUTROPHILS % (AUTO) 90.5 % (43.0-81.0); PLATELET COUNT (AUTO) 225 K/uL (150-450); RED BLOOD CELL COUNT(AUTO) 2.74 MIL/uL (4.5-6.0)
--- NOTE | 2022-09-25 20:00 | NUR ---
MS RN OPENING NOTE RECEIVED PATIENT AWAKE IN BED. A/O X 2-3. MAINTAINED ON 02 VIA NC @ 2LPM, TOLERATING WELL, BREATHING EVEN AND NON LABORED. IV ACCESS ON L HAND #22G RUNNING NS @ 100ML/HR INFUSING WELL, NO S/S OF INFILTRATION AT SITE NOTED. INTACT AND PATENT. PT WITH RIGHT FEMORAL HD CATH IN PLACE WITH DRESSING C/D/I. ALL SAFETY MEASURES KEPT IN PLACE: BED IN LOWEST AND LOCKED POSITION, CALL LIGHT AND TRAY TABLE WITHIN EASY REACH AND SIDE RAILS UP X 2.
[2022-09-25 20:29] LABS: BAND % (MANUAL) 2 % (0.0-5.0); LYMPHOCYTES % (MANUAL) 2 % (16-48); MONOCYTES % (MANUAL) 1 % (0-11.0); NEUTROPHILS % (MANUAL) 95 (42-76)
[2022-09-25] MEDS: INSULIN GLARGINE, 100 UNIT/ML CARTRIDGE SQ SCH (22:24)
--- NOTE | 2022-09-26 02:30 | NUR ---
RN NOTES BLADDER SCANNED THE PATIENT FOUND MORE THAN 400CC. IV FLUIDS IS PUT ON STAND BY. NOTIFIED THE CHARGE NURSE.
[2022-09-26] MEDS: IV NS 0.9% 1,000 ML IV PRN (04:59)
[2022-09-26] MEDS: INSULIN REGULAR, HUMAN 100 UNIT/ML 3 ML VIAL SQ PRN ×3 (05:32→16:58)
[2022-09-26] MEDS: BLOOD SUGAR DIAGNOSTIC 1 EACH STRIP VI SCH ×4 (06:37→21:45)
[2022-09-26 06:39] LABS: BASOPHILS % (AUTO) 0.2 % (0.0-2.0); EOSINOPHILS % (AUTO) 0.2 % (0.0-6.0); HEMATOCRIT 22 % (39-51); LYMPHOCYTES # (AUTO) 0.7 K/uL (0.8-4.8); LYMPHOCYTES % (AUTO) 4.3 % (20.0-44.0); MEAN CORPUSCULAR HGB CONC 32 g/dl (31.0-36.0); MEAN CORPUSCULAR VOLUME 86 fL (80-96); MONOCYTES # (AUTO) 1.1 K/uL (0.1-1.30); MONOCYTES % (AUTO) 6.8 % (2.0-12.0); NEUTROPHILS # (AUTO) 14.1 K/uL (1.8-8.9); NEUTROPHILS % (AUTO) 88.5 % (43.0-81.0); PLATELET COUNT (AUTO) 267 K/uL (150-450); RED BLOOD CELL COUNT(AUTO) 2.52 MIL/uL (4.5-6.0); WHITE BLOOD COUNT (AUTO) 15.9 K/uL (4.3-11.0)
--- NOTE | 2022-09-26 06:44 | NUR ---
MS RN CLOSING NOTE PATIENT AWAKE IN BED. A/O X 2-3. MAINTAINED ON 02 VIA NC @ 2LPM, TOLERATING WELL, BREATHING EVEN AND NON LABORED. IV ACCESS ON L HAND #22G RUNNING NS @ 100ML/HR INFUSING WELL, NO S/S OF INFILTRATION AT SITE NOTED. INTACT AND PATENT. PT WITH RIGHT FEMORAL HD CATH IN PLACE WITH DRESSING C/D/I. ALL DUE MEDICATIONS ARE GIVEN. ALL NEEDS ARE MET. ALL SAFETY MEASURES KEPT IN PLACE: BED IN LOWEST AND LOCKED POSITION, CALL LIGHT AND TRAY TABLE WITHIN EASY REACH AND SIDE RAILS UP X 2. WILL ENDORSE TO NEXT SHIFT NURSE FOR CONTINUITY OF CARE.
[2022-09-26 07:00] LABS: CALCIUM, SERUM 8.1 mg/dL (8.5-10.1); CREATININE 4.4 mg/dL (0.6-1.3); POTASSIUM 4.2 mmol/L (3.5-5.1)
[2022-09-26 07:28] LABS: HEMOGLOBIN 6.9 g/dL (13.5-17.5)
--- NOTE | 2022-09-26 07:30 | NUR ---
RN OPENING NOTE RECEIVED PATIENT AWAKE IN BED, A/O X 2. ABLE TO MAKE NEEDS KNOWN. MAINTAINED ON 02 VIA N/C @ 2LPM, TOLERATING WELL, BREATHING EVEN AND NON-LABORED. IV ACCESS ON L HAND #22G INTACT WITH IVF OF NS @ 100ML/HR INFUSING WELL, NO S/S OF INFILTRATION AT SITE NOTED. . INTACT AND PATENT. PT WITH RIGHT FEMORAL HD CATH IN PLACE WITH DRESSING C/D/I. SAFETY MEASURES IN PLACE, WITH BED LOCKED AND LOWEST POSITION. CALL LIGHT AND TRAY WITHIN EASY REACH. SIDE RAILS UP X 2. BED ALARM ON, WILL CONTINUE WITH THE PLAN OF CARE.
[2022-09-26] MEDS: PANTOPRAZOLE 40 MG TABLET.DR PO SCH (08:18)
[2022-09-26] MEDS: FLUOXETINE HCL 20 MG CAPSULE PO SCH (08:18)
[2022-09-26] MEDS: CHOLECALCIFEROL (VITAMIN D 3) 400 UNIT TABLET PO SCH (08:18)
[2022-09-26] MEDS: TAMSULOSIN 0.4 MG CAP.SR.24H PO SCH (08:18)
[2022-09-26] MEDS: ATORVASTATIN 40 MG TABLET PO SCH (08:18)
[2022-09-26] MEDS: AMLODIPINE BESYLATE 5 MG TABLET PO SCH (08:19)
--- NOTE | 2022-09-26 08:30 | NUR ---
RN NOTE RECEIVED CRITICAL LAB FROM [facility]ORGE FOR HGB 6.[address] GOMEZ NOTIFIED. ORDERED 1 UNIT PRBC.
--- NOTE | 2022-09-26 10:00 | NUR ---
RN NOTE/BLOOD TRANSFUSION 1 UNIT PRBC TRANSFUSED BY DIALYSIS NURSE, DIALYSIS NURSE ADMINISTERED PRBC OVER 35 MINUTES, STAYED WITH THE PATIENT. NO REACTION, VS STABLE, AFEBRILE. WILL CONTINUE TO MONITOR.
--- NOTE | 2022-09-26 12:35 | NUR ---
RN NOTE PT C/O ABDOMINAL PAIN, BLADDER SCAN SHOWED 860ML URINE, DR GOMEZ NOTIFIED, ORDERED HENRIQUEZ CATHETER INSERTION.
--- NOTE | 2022-09-26 13:10 | NUR ---
RN NOTE HENRIQUEZ CATHETER INSERTED, DRAINING YELLOW URINE, TOLERATED WELL, VS STABLE, WILL CONTINUE TO MONITOR.
[2022-09-26] MEDS: CEFEPIME 1 GM in IV D5W 50 ML IV SCH (14:26)
--- NOTE | 2022-09-26 18:36 | NUR ---
MS RN CLOSING NOTE PATIENT AWAKE IN BED. A/O X 2-3. ABLE TO MAKE NEEDS KNOWN. PT ON 02 VIA NC @ 2LPM, TOLERATING WELL, BREATHING EVEN AND NON LABORED. IV ACCESS ON L HAND #22G RUNNING NS @ 100ML/HR INFUSING WELL, NO S/S OF INFILTRATION AT SITE NOTED. INTACT AND PATENT. PT WITH RIGHT FEMORAL HD CATH IN PLACE WITH DRESSING C/D/I. PT HAVE A HENRIQUEZ CATHETER, IN PLACE AND DRAINING WELL, YELLOW URINE WITH PUS. OUTPUT :1000ML. HD DONE, 2L OUT. 1 UNIT PRBC GIVEN TO PT, TOLERATED WELL. PT TURNED AND REPOSITIONED Q2H AND PRN. ALL NEEDS AND CARE PROVIDED WELL. ALL SAFETY MEASURES KEPT IN PLACE: BED IN LOWEST AND LOCKED POSITION, CALL LIGHT AND TRAY TABLE WITHIN EASY REACH AND SIDE RAILS UP X 2. WILL ENDORSE TO FILM SORTER NURSE FOR CALLY.
--- NOTE | 2022-09-26 19:18 | NUR ---
MS RN OPENING NOTE PATIENT AWAKE IN BED. A/O X 2-3. ABLE TO MAKE NEEDS KNOWN. PT ON 02 VIA NC @ 2LPM, TOLERATING WELL, BREATHING EVEN AND NON LABORED. IV ACCESS ON L HAND #22G RUNNING NS @ 100ML/HR INFUSING WELL, NO S/S OF INFILTRATION AT SITE NOTED. INTACT AND PATENT. PT WITH RIGHT FEMORAL HD CATH IN PLACE WITH DRESSING C/D/I. PT HAVE A HENRIQUEZ CATHETER, IN PLACE AND DRAINING WELL,YELLOW URINE WITH PUS.TOLERATED WELL. PT TURNED AND REPOSITIONED Q2H AND PRN. ALL NEEDS AND CARE PROVIDED WELL. ALL SAFETY MEASURES KEPT IN PLACE: BED IN LOWEST AND LOCKED POSITION, CALL LIGHT AND TRAY TABLE WITHIN EASY REACH AND SIDE RAILS UP X 2.
[2022-09-26 20:00] VITALS: BP 113/61
[2022-09-26] MEDS: INSULIN GLARGINE, 100 UNIT/ML CARTRIDGE SQ SCH (21:45)
[2022-09-26] MEDS: *INSULIN REGULAR(HUMULIN R)HUM 100 UNIT/ML VIAL SQ PRN (21:46)
[2022-09-27] MEDS: MAGNESIUM HYDROXIDE 30 ML UDC PO PRN (02:11)
--- NOTE | 2022-09-27 02:13 | NUR ---
RN NOTE PRN MOM GIVEN FOR CONSTIPATION AT PT REQUEST. TOLERATED WELL.
[2022-09-27 04:27] LABS: BASOPHILS % (MANUAL) 0 % (0.0-2.0); EOSINOPHILS % (MANUAL) 0 % (0-4); LYMPHOCYTES % (MANUAL) 5 % (16-48); MONOCYTES % (MANUAL) 6 % (0-11.0); NEUTROPHILS % (MANUAL) 89 (42-76)
[2022-09-27 06:23] LABS: BASOPHILS % (AUTO) 0.2 % (0.0-2.0); EOSINOPHILS % (AUTO) 0.3 % (0.0-6.0); HEMATOCRIT 24 % (39-51); LYMPHOCYTES # (AUTO) 0.6 K/uL (0.8-4.8); LYMPHOCYTES % (AUTO) 4.5 % (20.0-44.0); MEAN CORPUSCULAR HGB CONC 33 g/dl (31.0-36.0); MEAN CORPUSCULAR VOLUME 86 fL (80-96); MONOCYTES # (AUTO) 1.2 K/uL (0.1-1.30); MONOCYTES % (AUTO) 9.1 % (2.0-12.0); NEUTROPHILS # (AUTO) 11.5 K/uL (1.8-8.9); NEUTROPHILS % (AUTO) 85.9 % (43.0-81.0); PLATELET COUNT (AUTO) 258 K/uL (150-450); RED BLOOD CELL COUNT(AUTO) 2.84 MIL/uL (4.5-6.0); WHITE BLOOD COUNT (AUTO) 13.4 K/uL (4.3-11.0)
[2022-09-27] MEDS: INSULIN REGULAR, HUMAN 100 UNIT/ML 3 ML VIAL SQ PRN ×3 (06:32→17:32)
[2022-09-27] MEDS: BLOOD SUGAR DIAGNOSTIC 1 EACH STRIP VI SCH ×4 (06:32→21:18)
--- NOTE | 2022-09-27 06:37 | NUR ---
MS RN CLOSING NOTE PATIENT AWAKE IN BED. A/O X 2-3. ABLE TO MAKE NEEDS KNOWN. PT ON 02 VIA NC @ 2LPM, TOLERATING WELL, BREATHING EVEN AND NON LABORED. IV ACCESS ON L HAND #22G RUNNING NS @ 100ML/HR INFUSING WELL, NO S/S OF INFILTRATION AT SITE NOTED. INTACT AND PATENT. PT WITH RIGHT FEMORAL HD CATH IN PLACE WITH DRESSING C/D/I. PT HAVE A HENRIQUEZ CATHETER, IN PLACE AND DRAINING WELL,YELLOW URINE WITH PUS 450 ML.TOLERATED WELL. PT TURNED AND REPOSITIONED Q2H AND PRN. ALL NEEDS AND CARE PROVIDED WELL. ALL SAFETY MEASURES KEPT IN PLACE: BED IN LOWEST AND LOCKED POSITION, CALL LIGHT AND TRAY TABLE WITHIN EASY REACH AND SIDE RAILS UP X 2. WILL ENDORSE TO DAY SHIFT NURSE.
[2022-09-27 06:59] LABS: CALCIUM, SERUM 8.1 mg/dL (8.5-10.1); CREATININE 4.5 mg/dL (0.6-1.3); POTASSIUM 3.9 mmol/L (3.5-5.1)
--- NOTE | 2022-09-27 07:20 | NUR ---
MS RN OPENING NOTES PATIENT IN BED ALERT ORIENTED X 3, NO ACUTE DISTRESS NOTED, BREATHING UNLABORED. NO SOB NOTED. IV ACCESS PATENT AND INTACT, NO REDNESS, NO SWELLING NOTED. HENRIQUEZ CATHETER PATENT AND INTACT DRAINING CINDY URINE. DIALYSIS ACCESS INTACT WITH DRESSING.SAFETY MEASURES IN PLACE, CALL LIGHT WITHIN REACH. WILL CONTINUE TO MONITOR ACCORDINGLY
[2022-09-27] MEDS: PANTOPRAZOLE 40 MG TABLET.DR PO SCH (07:52)
[2022-09-27 08:00] VITALS: BP 122/62
[2022-09-27] MEDS: CHOLECALCIFEROL (VITAMIN D 3) 400 UNIT TABLET PO SCH (08:21)
[2022-09-27] MEDS: TAMSULOSIN 0.4 MG CAP.SR.24H PO SCH (08:21)
[2022-09-27] MEDS: ATORVASTATIN 40 MG TABLET PO SCH (08:21)
[2022-09-27] MEDS: FLUOXETINE HCL 20 MG CAPSULE PO SCH (08:21)
[2022-09-27] MEDS: AMLODIPINE BESYLATE 5 MG TABLET PO SCH (08:27)
--- NOTE | 2022-09-27 08:28 | NUR ---
MS- HELD AMPLODIPINE DUE TO PT WILL HAVE HD TODAY BP WITHIN NORMAL LIMITS
[2022-09-27] MEDS: ACETAMINOPHEN 325 MG TABLET PO PRN (08:53)
--- NOTE | 2022-09-27 08:56 | NUR ---
MS- PT COMPLAINT OF PAIN 3/10 TYLENOL GIVEN ORDERED.
[2022-09-27] MEDS: MORPHINE SULFATE INJ 2 MG/ML DISP.SYRIN IV PRN (09:25)
[2022-09-27] MEDS: Z GUARD REMEDY 4 OZ OINT TP PRN (10:51)
[2022-09-27 16:08] VITALS: BP 118/58
--- NOTE | 2022-09-27 18:50 | NUR ---
MS RN CLOSING NOTES PATIENT IN BED ALERT ORIENTED X 2-3, NO ACUTE DISTRESS NOTED, BREATHING UNLABORED. NO SOB NOTED. IV ACCESS PATENT AND INTACT, NO REDNESS, NO SWELLING NOTED. HENRIQUEZ CATHETER PATENT AND INTACT DRAINING CINDY URINE. DIALYSIS ACCESS INTACT WITH DRESSING.NEEDS ATTENDED AND ANTICIPATED. SAFETY MEASURES IN PLACE, CALL LIGHT WITHIN REACH. WILL ENDORSE TO NIGHT NURSE FOR CONTINUITY OF CARE
--- NOTE | 2022-09-27 19:40 | NUR ---
MS RN OPENING NOTES PATIENT IN BED AWAKE AND ALERT. A/O X 3. NO S/S OF PAIN NOTED AT THIS TIME. ON RA, BREATHING EVEN AND UNLABORED, NO DISTRESS OR SOB NOTED. IV ACCESS ON L HAND #22G, PATENT AND INTACT. HENRIQUEZ CATHETER DRAINING CLOUDY CINDY URINE. R FEMORAL CATH DIALYSIS ACCESS INTACT WITH DRESSING. SAFETY MEASURES IN PLACE WITH BED ON LOWEST AND LOCK POSITION. TRAY AND CALL LIGHT WITHIN EASY REACH. SIDE RAILS UP X 2. WILL CONTINUE TO MONITOR.
[2022-09-27 19:57] VITALS: BP 114/48
[2022-09-27] MEDS: INSULIN GLARGINE, 100 UNIT/ML CARTRIDGE SQ SCH (21:19)
[2022-09-27] MEDS: *INSULIN REGULAR(HUMULIN R)HUM 100 UNIT/ML VIAL SQ PRN (21:22)
[2022-09-27 22:46] VITALS: BP 114/48
[2022-09-28 05:54] LABS: BASOPHILS # (AUTO) 0.1 K/uL (0.0-0.2); BASOPHILS % (AUTO) 0.4 % (0.0-2.0); EOSINOPHILS % (AUTO) 0.4 % (0.0-6.0); HEMATOCRIT 25 % (39-51); HEMOGLOBIN 7.9 g/dL (13.5-17.5); LYMPHOCYTES # (AUTO) 0.8 K/uL (0.8-4.8); LYMPHOCYTES % (AUTO) 6.1 % (20.0-44.0); MEAN CORPUSCULAR HGB CONC 31 g/dl (31.0-36.0); MEAN CORPUSCULAR VOLUME 88 fL (80-96); MONOCYTES # (AUTO) 1.3 K/uL (0.1-1.30); MONOCYTES % (AUTO) 9.9 % (2.0-12.0); NEUTROPHILS # (AUTO) 10.6 K/uL (1.8-8.9); NEUTROPHILS % (AUTO) 83.2 % (43.0-81.0); PLATELET COUNT (AUTO) 262 K/uL (150-450); RED BLOOD CELL COUNT(AUTO) 2.85 MIL/uL (4.5-6.0); WHITE BLOOD COUNT (AUTO) 12.7 K/uL (4.3-11.0)
[2022-09-28] MEDS: INSULIN REGULAR, HUMAN 100 UNIT/ML 3 ML VIAL SQ PRN ×3 (06:00→16:38)
[2022-09-28 06:14] LABS: CALCIUM, SERUM 7.9 mg/dL (8.5-10.1); CREATININE 4.8 mg/dL (0.6-1.3); POTASSIUM 4.5 mmol/L (3.5-5.1)
--- NOTE | 2022-09-28 07:24 | NUR ---
MS RN CLOSING NOTES PATIENT IN BED SLEEPING COMFORTABLY. EASILY AWAKEN A/O X 3. NO S/S OF PAIN NOTED AT THIS TIME. ON RA, BREATHING EVEN AND UNLABORED, NO DISTRESS OR SOB NOTED. IV ACCESS ON L HAND #22G, PATENT AND INTACT. HENRIQUEZ CATHETER DRAINED 350CC WITH CLOUDY CINDY COLORED URINE. R FEMORAL CATH DIALYSIS ACCESS INTACT WITH DRESSING. ALL DUE MEDS GIVEN. SAFETY MEASURES MAINTAINED WITH BED ON LOWEST AND LOCK POSITION. TRAY AND CALL LIGHT WITHIN EASY REACH. SIDE RAILS UP X 2. WILL ENDORSE TO THE NEXT SHIFT.
--- NOTE | 2022-09-28 08:06 | NUR ---
RN OPENING NOTE RECEIVED PATIENT IN BED AO x 2-3, ABLE TO RESPONDS PHYSICAL STIMULI. RESPIRATORY EVEN AND UNLABORED IN OXYGEN AT 2 Ls VIA NC. IN NO ACUTE DISTRESS OBSERVED. SKIN IS WARM TO TOUCH, KEEP CLEAN/DRY. KEPT ELEVATED HOB FOR ASPIRATION PRECAUTION/ENSURE AIRWAY, ALSO LOWEST BED POSITIONED. BED ALARM IS ON AT ALL THE TIME FOR SAFETY. CALL LIGHT WITHIN REACH, WILL CONTINUE TO MONITOR.
[2022-09-28] MEDS: FLUOXETINE HCL 20 MG CAPSULE PO SCH (08:13)
[2022-09-28] MEDS: ATORVASTATIN 40 MG TABLET PO SCH (08:13)
[2022-09-28] MEDS: PANTOPRAZOLE 40 MG TABLET.DR PO SCH (08:13)
[2022-09-28] MEDS: BLOOD SUGAR DIAGNOSTIC 1 EACH STRIP VI SCH ×4 (08:13→22:45)
[2022-09-28] MEDS: TAMSULOSIN 0.4 MG CAP.SR.24H PO SCH (08:13)
[2022-09-28] MEDS: AMLODIPINE BESYLATE 5 MG TABLET PO SCH (08:13)
[2022-09-28] MEDS: CHOLECALCIFEROL (VITAMIN D 3) 400 UNIT TABLET PO SCH (08:14)
[2022-09-28 08:27] VITALS: BP 119/58
[2022-09-28 16:50] VITALS: BP 120/62
--- NOTE | 2022-09-28 18:43 | NUR ---
RN CLOSING NOTE PATIENT RESTING IN BED. IN NO ACUTE DISTRESS OBSERVED. RESPIRATORY EVEN AND UNLABORED IN ROOM AIR, NO SOB OR DESATURATION NOTED. SKIN IS WARM TO TOUCH KEEP CLEAN/DRY. THE LATE BS 171 MG/DL AND GIVEN 3 UNITS OF INSULIN. KEPT ELEVATED HOB FOR ENSURE AIRWAY/ASPIRATION PRECAUTION, AND LOWEST BED POSITION. BED ALARM IS ON AT ALL THE TIME FOR SAFETY. CALL LIGHT WITHIN REACH, WILL ENDORSE HISTORIC CLOTHING AND COSTUME MAKER.
--- NOTE | 2022-09-28 19:30 | NUR ---
MS RN OPENING NOTE RECEIVED PATIENT IN BED; AWAKE, A/O X 2-3. ON ROOM AIR; TOLERATING WELL. BREATHING EVEN AND NONLABORED. DENIES ANY PAIN OR DISCOMFORT AT THIS TIME. WITH IV ACCESS ON LEFT HAND 22G; PATENT, INTACT AND SALINE LOCKED. WITH RIGHT FEMORAL HD CATH IN PLACE; WITH DRESSING C/D/I. WITH HENRIQUEZ CATHETER IN PLACE DRAINING BY GRAVITY TO YELLOW URINE OUTPUT. TURNED AND REPOSITIONED EVERY 2 HRS AND PRN. SAFETY MEASURES IMPLEMENTED: CALL LIGHT AND TABLE WITHIN REACH, SIDE RAILS UP X 2, BED IN LOWEST LOCKED POSITION. WILL CONTINUE PLAN OF CARE.
[2022-09-28 20:00] VITALS: BP 128/68
[2022-09-28] MEDS: INSULIN GLARGINE, 100 UNIT/ML CARTRIDGE SQ SCH (22:49)
[2022-09-28] MEDS: *INSULIN REGULAR(HUMULIN R)HUM 100 UNIT/ML VIAL SQ PRN (22:52)
--- NOTE | 2022-09-29 02:50 | NUR ---
MS RN NOTE COVERING PRIMARY RN WHILE ON BREAK. PATIENT C/O NAUSEA. ZOFRAN 4 MG IV GIVEN ORDERED. WILL CONTINUE TO MONITOR PATIENT
[2022-09-29] MEDS: BLOOD SUGAR DIAGNOSTIC 1 EACH STRIP VI SCH ×4 (05:41→22:21)
[2022-09-29] MEDS: INSULIN REGULAR, HUMAN 100 UNIT/ML 3 ML VIAL SQ PRN ×3 (06:03→17:07)
[2022-09-29 06:32] LABS: BASOPHILS # (AUTO) 0.1 K/uL (0.0-0.2); BASOPHILS % (AUTO) 0.6 % (0.0-2.0); EOSINOPHILS % (AUTO) 0.5 % (0.0-6.0); HEMATOCRIT 24 % (39-51); HEMOGLOBIN 7.7 g/dL (13.5-17.5); LYMPHOCYTES # (AUTO) 0.8 K/uL (0.8-4.8); LYMPHOCYTES % (AUTO) 7.1 % (20.0-44.0); MEAN CORPUSCULAR HGB CONC 32 g/dl (31.0-36.0); MEAN CORPUSCULAR VOLUME 88 fL (80-96); MONOCYTES # (AUTO) 1.2 K/uL (0.1-1.30); MONOCYTES % (AUTO) 10.5 % (2.0-12.0); NEUTROPHILS # (AUTO) 9.4 K/uL (1.8-8.9); NEUTROPHILS % (AUTO) 81.3 % (43.0-81.0); PLATELET COUNT (AUTO) 348 K/uL (150-450); RED BLOOD CELL COUNT(AUTO) 2.76 MIL/uL (4.5-6.0); WHITE BLOOD COUNT (AUTO) 11.5 K/uL (4.3-11.0)
--- NOTE | 2022-09-29 06:45 | NUR ---
MS RN CLOSING NOTE PATIENT IN BED; AWAKE, A/O X 2. STABLE ON ROOM AIR. BREATHING EQUAL AND UNLABORED. IN NO ACUTE DISTRESS. DENIES ANY PAIN OR DISCOMFORT AT THIS TIME. WITH IV ACCESS ON LEFT HAND 22G; PATENT, INTACT AND SALINE LOCKED. WITH RIGHT FEMORAL HD CATH IN PLACE; DRESSING C/D/I. WITH HENRIQUEZ CATHETER IN PLACE DRAINING BY GRAVITY TO YELLOW URINE OUTPUT. SAFETY MEASURES MAINTAINED: CALL LIGHT AND TABLE WITHIN REACH, SIDE RAILS UP X 2, BED IN LOWEST LOCKED POSITION. ENDORSED TO MORNING SHIFT FOR CALLY.
[2022-09-29 06:49] LABS: CALCIUM, SERUM 8.3 mg/dL (8.5-10.1); CREATININE 5.4 mg/dL (0.6-1.3); POTASSIUM 4.4 mmol/L (3.5-5.1)
--- NOTE | 2022-09-29 07:45 | NUR ---
MS RN OPENING NOTE RECEIVED PATIENT AWAKE IN BED, A/O X 2-3. ON ROOM AIR; TOLERATING WELL. BREATHING EVEN AND NONLABORED. DENIES ANY PAIN OR DISCOMFORT AT THIS TIME. WITH IV ACCESS ON LEFT HAND 22G; PATENT, INTACT AND SALINE LOCKED. WITH RIGHT FEMORAL HD CATH IN PLACE; DRESSING C/D/I. WITH HENRIQUEZ CATHETER IN PLACE DRAINING BY GRAVITY TO YELLOW URINE OUTPUT. SAFETY MEASURES IN PLACE: CALL LIGHT WITHIN REACH, SIDE RAILS UP X 2, BED LOCKED IN LOWEST POSITION. WILL CONTINUE PLAN OF CARE.
[2022-09-29 08:17] VITALS: BP 132/66
[2022-09-29] MEDS: TAMSULOSIN 0.4 MG CAP.SR.24H PO SCH (08:28)
[2022-09-29] MEDS: CHOLECALCIFEROL (VITAMIN D 3) 400 UNIT TABLET PO SCH (08:28)
[2022-09-29] MEDS: PANTOPRAZOLE 40 MG TABLET.DR PO SCH (08:29)
[2022-09-29] MEDS: FLUOXETINE HCL 20 MG CAPSULE PO SCH (08:29)
[2022-09-29] MEDS: AMLODIPINE BESYLATE 5 MG TABLET PO SCH (08:29)
[2022-09-29] MEDS: ATORVASTATIN 40 MG TABLET PO SCH (08:29)
[2022-09-29 16:07] VITALS: BP 123/70
--- NOTE | 2022-09-29 18:35 | NUR ---
MS RN CLOSING NOTE PATIENT RESTING IN BED; AWAKE, A/O X 2-3. STABLE ON ROOM AIR. BREATHING EVEN AND NON LABORED. IN NO ACUTE DISTRESS. DENIES ANY PAIN OR DISCOMFORT AT THIS TIME. WITH IV ACCESS ON LEFT HAND 22G; PATENT, INTACT AND SL. WITH RIGHT FEMORAL HD CATH IN PLACE; DRESSING C/D/I. REMOVED 2L DURING DIALYSIS. WITH HENRIQUEZ CATHETER IN PLACE DRAINING BY GRAVITY TO YELLOW URINE OUTPUT. ALL DUE MEDS ADMINISTERED. SAFETY MEASURES MAINTAINED: CALL LIGHT AND TABLE WITHIN REACH, SIDE RAILS UP X 2, BED IN LOWEST LOCKED POSITION. WILL ENDORSE TO NEXT SHIFT FOR CALLY.
[2022-09-29 20:00] VITALS: BP 124/65
--- NOTE | 2022-09-29 20:00 | NUR ---
RN MS OPENING NOTES RECEIVED PATIENT IN BED, ON MODERATE HIGH BACK REST POSITION. ON ROOM AIR TOLERATING WELL. A/O X 3. ON BED REST. WITH IV ACCESS AT LEFT HAND #22G PATENT AND INTACT. WITH HEMODIALYSIS ACCESS AT RIGHT FEMORAL DRESSING IS DRY AND CLEAN. NO BLEEDING NOTED. NOTED SWELLING IN THE SCROTUM AND URETHRAL AREA. NO EPISODE OF SOB/ NOTED. PATIENT COMPLAIN OF PAIN IN THE URETHRAL AREA PAIN SCALE OF 6/20. PAIN MEDICATIONS GIVEN. KEPT BED ON LOWER LOCKED POSITION. KEPT SIDE RAILS UP X3 ALL THE TIME. ON DVT PUMP. PM CARE RENDERED. WILL CONTINUE TO MONITOR.
[2022-09-29] MEDS: ACETAMINOPHEN ES 500 MG TABLET PO PRN (20:36)
[2022-09-29] MEDS: INSULIN GLARGINE, 100 UNIT/ML CARTRIDGE SQ SCH (22:20)
[2022-09-30] MEDS: ACETAMINOPHEN 325 MG TABLET PO PRN (04:00)
[2022-09-30] MEDS: INSULIN REGULAR, HUMAN 100 UNIT/ML 3 ML VIAL SQ PRN ×3 (05:45→17:34)
[2022-09-30] MEDS: BLOOD SUGAR DIAGNOSTIC 1 EACH STRIP VI SCH ×4 (05:46→23:12)
--- NOTE | 2022-09-30 06:37 | NUR ---
RN MS CLOSING NOTES PATIENT IS IN BED. ASLEEP ON MODERATE HIGH BACK REST POSITION. A/O X 3 ABLE TO MADE NEEDS KNOW. NO SIGNS OF PAIN OR DISCOMFORT AT THIS TIME. NOTED URETHRAL SWELLING NOTED. WITH IV ACCESS AT LEFT HAND PATENT AND INTACT. WITH RIGHT FEMORAL CATHETER NOTED FOR HEMODIALYSIS ACCESS. PATIENT IS FOR HD TODAY.PM CARE RENDERED, ALL DUE MEDICATIONS GIVEN AND ALL NEEDS ATTENDED. KEPT BED ON LOWER LOCKED POSITION AND KEPT SIDE RAILS UP X 3 ALL THE TIME. PM CARE RENDERED. WILL ENDORSED TO AM SHIFT FOR CALLY.
[2022-09-30 07:01] LABS: BASOPHILS # (AUTO) 0.1 K/uL (0.0-0.2); BASOPHILS % (AUTO) 0.5 % (0.0-2.0); EOSINOPHILS % (AUTO) 0.5 % (0.0-6.0); HEMATOCRIT 22 % (39-51); HEMOGLOBIN 7.2 g/dL (13.5-17.5); LYMPHOCYTES # (AUTO) 0.7 K/uL (0.8-4.8); LYMPHOCYTES % (AUTO) 6.6 % (20.0-44.0); MEAN CORPUSCULAR HGB CONC 33 g/dl (31.0-36.0); MEAN CORPUSCULAR VOLUME 88 fL (80-96); MONOCYTES # (AUTO) 0.9 K/uL (0.1-1.30); MONOCYTES % (AUTO) 8.5 % (2.0-12.0); NEUTROPHILS # (AUTO) 9.4 K/uL (1.8-8.9); NEUTROPHILS % (AUTO) 83.9 % (43.0-81.0); PLATELET COUNT (AUTO) 308 K/uL (150-450); RED BLOOD CELL COUNT(AUTO) 2.52 MIL/uL (4.5-6.0); WHITE BLOOD COUNT (AUTO) 11.2 K/uL (4.3-11.0)
[2022-09-30 07:12] LABS: POTASSIUM 4.5 mmol/L (3.5-5.1)
--- NOTE | 2022-09-30 07:35 | NUR ---
RN OPENING NOTE RECEIVED PATIENT AWAKE IN BED, A/O X 3. ON ROOM AIR; TOLERATING WELL. BREATHING EVEN AND NONLABORED. DENIES ANY PAIN OR DISCOMFORT AT THIS TIME. WITH IV ACCESS ON LEFT HAND 22G; PATENT, INTACT AND SALINE LOCKED. WITH RIGHT FEMORAL HD CATH IN PLACE; DRESSING C/D/I. WITH HENRIQUEZ CATHETER IN PLACE DRAINING BY GRAVITY TO YELLOW URINE OUTPUT. SAFETY MEASURES IN PLACE: CALL LIGHT WITHIN REACH, SIDE RAILS UP X 3, BED LOCKED IN LOWEST POSITION. WILL CONTINUE PLAN OF CARE.
[2022-09-30] MEDS: AMLODIPINE BESYLATE 5 MG TABLET PO SCH (08:34)
[2022-09-30] MEDS: CHOLECALCIFEROL (VITAMIN D 3) 400 UNIT TABLET PO SCH (08:36)
[2022-09-30] MEDS: FLUOXETINE HCL 20 MG CAPSULE PO SCH (08:37)
[2022-09-30] MEDS: PANTOPRAZOLE 40 MG TABLET.DR PO SCH (08:37)
[2022-09-30] MEDS: TAMSULOSIN 0.4 MG CAP.SR.24H PO SCH (08:37)
[2022-09-30] MEDS: ATORVASTATIN 40 MG TABLET PO SCH (08:37)
[2022-09-30 08:45] VITALS: BP 130/65
[2022-09-30 16:00] VITALS: BP 121/59
--- NOTE | 2022-09-30 18:30 | NUR ---
RN CLOSING NOTE PATIENT RESTING IN BED; AWAKE, A/O X 3. ABLE TO MAKE NEEDS KNOWN. STABLE ON ROOM AIR. BREATHING EVEN AND NON LABORED. IN NO ACUTE DISTRESS. DENIES ANY PAIN OR DISCOMFORT AT THIS TIME. WITH IV ACCESS ON LEFT HAND 22G; PATENT, INTACT AND SL. WITH RIGHT FEMORAL HD CATH IN PLACE; DRESSING C/D/I. REMOVED 1L DURING DIALYSIS. WITH HENRIQUEZ CATHETER IN PLACE DRAINING BY GRAVITY TO YELLOW URINE OUTPUT. ALL DUE MEDS ADMINISTERED. SAFETY MEASURES MAINTAINED: CALL LIGHT AND TABLE WITHIN REACH, SIDE RAILS UP X 2, BED IN LOWEST LOCKED POSITION. WILL ENDORSE TO NEXT SHIFT FOR CALLY.
[2022-09-30 20:00] VITALS: BP 122/59
--- NOTE | 2022-09-30 20:26 | NUR ---
RN MS OPENING NOTES RECEIVED PATIENT IN BED, AWAKE AND COHERENT. A/O X 3. ON BED REST, ON MODERATE HIGH BACK REST POSITION. WITH IV ACCESS AT LEFT HAND #22G WITH SALINE LOCK PATENT AND INTACT. WITH RIGHT FEMORAL CATHETER FOR HEMODIALYSIS WITH DRESSING CLEAN AND DRY. NOTED SWELLING ON URETHRAL AREA. NO S/S OF PAIN OR DIFFICULTY OF BREATHING THIS TIME. NO BLEEDING NOTED. KEPT BED ON LOWER LOCKED POSITION AND KEPT SIDE RAILS UP X3 ALL THE TIME. KEPT CALL LIGHT WITHIN AT REACH. SAFETY MEASURES IN PLACED. WILL CONTINUE TO MONITOR.
[2022-09-30] MEDS ORDERED: INSULIN GLARGINE, 100 UNIT/ML CARTRIDGE SQ SCH (22:00)
[2022-10-01] MEDS: BLOOD SUGAR DIAGNOSTIC 1 EACH STRIP VI SCH ×4 (06:11→21:51)
[2022-10-01] MEDS: INSULIN REGULAR, HUMAN 100 UNIT/ML 3 ML VIAL SQ PRN ×3 (06:13→17:17)
--- NOTE | 2022-10-01 06:31 | NUR ---
RN MS CLOSING NOTES PATIENT IS IN BED. ASLEEP ON MODERATE HIGH BACK REST POSITION. A/O X 3 ABLE TO MADE NEEDS KNOW. NO SIGNS OF PAIN OR DISCOMFORT AT THIS TIME. NOTED URETHRAL SWELLING NOTED. WITH IV ACCESS AT LEFT HAND PATENT AND INTACT. WITH RIGHT FEMORAL CATHETER NOTED FOR HEMODIALYSIS ACCESS. PATIENT IS FOR HD TODAY.PM CARE RENDERED,NO SIGNS OF PAIN OR DIFFICULTY OF BREATHING AT THIS TIME. NO BLEEDING NOTED. INTAKE AND OUTPUT RECORDED. ALL DUE MEDICATIONS GIVEN AND ALL NEEDS ATTENDED. KEPT BED ON LOWER LOCKED POSITION AND KEPT SIDE RAILS UP X 2 ALL THE TIME. PM CARE RENDERED. WILL ENDORSED TO AM SHIFT FOR CALLY.
[2022-10-01 07:00] VITALS: BP 141/72
[2022-10-01 07:08] LABS: CALCIUM, SERUM 8.2 mg/dL (8.5-10.1); CREATININE 4.2 mg/dL (0.6-1.3); POTASSIUM 4.6 mmol/L (3.5-5.1)
[2022-10-01 07:16] LABS: BASOPHILS # (AUTO) 0.1 K/uL (0.0-0.2); BASOPHILS % (AUTO) 0.7 % (0.0-2.0); EOSINOPHILS % (AUTO) 0.6 % (0.0-6.0); HEMATOCRIT 22 % (39-51); HEMOGLOBIN 7.1 g/dL (13.5-17.5); LYMPHOCYTES # (AUTO) 0.9 K/uL (0.8-4.8); LYMPHOCYTES % (AUTO) 7.4 % (20.0-44.0); MEAN CORPUSCULAR HGB CONC 32 g/dl (31.0-36.0); MEAN CORPUSCULAR VOLUME 88 fL (80-96); MONOCYTES % (AUTO) 8.2 % (2.0-12.0); NEUTROPHILS # (AUTO) 10.2 K/uL (1.8-8.9); NEUTROPHILS % (AUTO) 83.1 % (43.0-81.0); PLATELET COUNT (AUTO) 316 K/uL (150-450); RED BLOOD CELL COUNT(AUTO) 2.54 MIL/uL (4.5-6.0); WHITE BLOOD COUNT (AUTO) 12.2 K/uL (4.3-11.0)
[2022-10-01 07:19] LABS: MAGNESIUM 2.1 mg/dL (1.8-2.4); PHOSPHORUS 4.3 mg/dL (2.5-4.9)
--- NOTE | 2022-10-01 07:27 | NUR ---
MS RN OPENING NOTE RECEIVED PATIENT IN BED, AWAKE. A/O X 3, ABLE TO MAKE NEEDS KNOWN. NO C/O PAIN/DISCOMFORT AT THIS TIME. STABLE ON ROOM AIR, NO SIGN OF ACUTE RESPIRATORY DISTRESS NOTED. WITH IV ACCESS ON LEFT HAND #22G, SL, C/D/I. WITH HENRIQUEZ DRAINING VIA GRAVITY WITH YELLOW URINE. SAFETY MEASURES IN PLACE: BED IN LOWEST AND LOCKED POSITION, SIDE RAILS UP X2, TRAY TABLE AND CALL LIGHT WITHIN EASY REACH. WILL CONTINUE TO MONITOR.
[2022-10-01] MEDS: PANTOPRAZOLE 40 MG TABLET.DR PO SCH (07:41)
[2022-10-01] MEDS: ATORVASTATIN 40 MG TABLET PO SCH (08:45)
[2022-10-01] MEDS: CHOLECALCIFEROL (VITAMIN D 3) 400 UNIT TABLET PO SCH (08:45)
[2022-10-01] MEDS: TAMSULOSIN 0.4 MG CAP.SR.24H PO SCH (08:46)
[2022-10-01] MEDS: AMLODIPINE BESYLATE 5 MG TABLET PO SCH (08:46)
[2022-10-01] MEDS: FLUOXETINE HCL 20 MG CAPSULE PO SCH (08:46)
[2022-10-01] MEDS: MORPHINE SULFATE INJ 2 MG/ML DISP.SYRIN IV PRN (09:56)
--- NOTE | 2022-10-01 10:00 | NUR ---
RN NOTES PT VERBALIZED HIS IN PAIN AND WANT HIS MORPHINE, MORPHINE 2MG/ML IV PRN GIVEN AT 0956, WILL CONTINUE TO MONITOR.
--- NOTE | 2022-10-01 14:59 | NUR ---
Dialysis Notes: Pt refused dialysis treatment today, Dr Gillette made aware.
[2022-10-01 16:00] VITALS: BP 135/63
--- NOTE | 2022-10-01 18:35 | NUR ---
MS RN CLOSING NOTE PATIENT RESTING IN BED. A/O X 3, ABLE TO MAKE NEEDS KNOWN. NO C/O PAIN/DISCOMFORT AT THIS TIME. ON ROOM AIR, TOLERATED WELL. WITH IV ACCESS ON LEFT HAND #22G, SL, C/D/I. NEEDS ATTENDED. WITH HENRIQUEZ DRAINING VIA GRAVITY WITH YELLOW URINE. SAFETY MEASURES IN PLACE: BED IN LOWEST AND LOCKED POSITION, SIDE RAILS UP X2, TRAY TABLE AND CALL LIGHT WITHIN EASY REACH. WILL ENDORSE CALLY TO NIGHT.
--- NOTE | 2022-10-01 19:30 | NUR ---
RN Opening Notes Received pt in bed, awake. No respiratory distress noted. Patient stable. All needs met at this time.
[2022-10-01 20:00] VITALS: BP 122/78
[2022-10-01] MEDS: *INSULIN REGULAR(HUMULIN R)HUM 100 UNIT/ML VIAL SQ PRN (21:51)
[2022-10-01] MEDS ORDERED: INSULIN GLARGINE, 100 UNIT/ML CARTRIDGE SQ SCH (22:00)
--- NOTE | 2022-10-02 06:10 | NUR ---
RN Notes Blood sugar of 45. Patient still alert and oriented. Able to drink juice. Administered 2 cranberry juices. Will reassess blood sugar. Addendum: 10/02/22 at 0637 by NALYA DANIELSON RN Reassessed blood sugar and was 90.
[2022-10-02] MEDS: BLOOD SUGAR DIAGNOSTIC 1 EACH STRIP VI SCH ×4 (06:35→22:15)
[2022-10-02] MEDS: INSULIN REGULAR, HUMAN 100 UNIT/ML 3 ML VIAL SQ PRN ×2 (06:36→16:43)
--- NOTE | 2022-10-02 06:44 | NUR ---
RN Closing Notes Pt in bed, asleep, awakens to verbal stimuli. No respiratory distress noted. Patient stable. All needs met at this time. All orders carried out. Pt kept clean and dry. Will endorse to oncoming shift for CALLY.
--- NOTE | 2022-10-02 07:24 | NUR ---
MS RN OPENING NOTE RECEIVED PATIENT IN BED, AWAKE. A/O X 3, ABLE TO MAKE NEEDS KNOWN. NO C/O PAIN/DISCOMFORT AT THIS TIME. ON ROOM AIR, TOLERATING WELL, NO SIGN OF ACUTE RESPIRATORY DISTRESS. IV ACCESS ON LEFT HAND #22G, SL, C/D/I. WITH HENRIQUEZ DRAINING VIA GRAVITY WITH YELLOW URINE. SAFETY MEASURES IN PLACE: BED IN LOWEST AND LOCKED POSITION, SIDE RAILS UP X2, TRAY TABLE AND CALL LIGHT WITHIN EASY REACH. WILL CONTINUE TO MONITOR.
[2022-10-02 08:00] VITALS: BP 146/84
[2022-10-02] MEDS: PANTOPRAZOLE 40 MG TABLET.DR PO SCH (08:15)
[2022-10-02] MEDS: FLUOXETINE HCL 20 MG CAPSULE PO SCH (09:06)
[2022-10-02] MEDS: TAMSULOSIN 0.4 MG CAP.SR.24H PO SCH (09:06)
[2022-10-02] MEDS: ATORVASTATIN 40 MG TABLET PO SCH (09:06)
[2022-10-02] MEDS: CHOLECALCIFEROL (VITAMIN D 3) 400 UNIT TABLET PO SCH (09:06)
[2022-10-02] MEDS: AMLODIPINE BESYLATE 5 MG TABLET PO SCH (09:07)
[2022-10-02 11:18] LABS: BASOPHILS # (AUTO) 0.1 K/uL (0.0-0.2); BASOPHILS % (AUTO) 0.6 % (0.0-2.0); EOSINOPHILS % (AUTO) 0.4 % (0.0-6.0); HEMATOCRIT 22 % (39-51); LYMPHOCYTES # (AUTO) 0.6 K/uL (0.8-4.8); LYMPHOCYTES % (AUTO) 4.7 % (20.0-44.0); MEAN CORPUSCULAR HGB CONC 32 g/dl (31.0-36.0); MEAN CORPUSCULAR VOLUME 87 fL (80-96); MONOCYTES # (AUTO) 0.8 K/uL (0.1-1.30); MONOCYTES % (AUTO) 6.9 % (2.0-12.0); NEUTROPHILS # (AUTO) 10.5 K/uL (1.8-8.9); NEUTROPHILS % (AUTO) 87.4 % (43.0-81.0); PLATELET COUNT (AUTO) 367 K/uL (150-450)
[2022-10-02 11:29] LABS: CALCIUM, SERUM 8.2 mg/dL (8.5-10.1); CREATININE 4.4 mg/dL (0.6-1.3); PHOSPHORUS 4.9 mg/dL (2.5-4.9); POTASSIUM 4.4 mmol/L (3.5-5.1)
[2022-10-02 16:00] VITALS: BP 118/59
--- NOTE | 2022-10-02 18:34 | NUR ---
MS RN CLOSING NOTE PATIENT RESTING IN BED, WATCHING TV. A/O X 3, ABLE TO MAKE NEEDS KNOWN. NO C/O PAIN/DISCOMFORT WITHIN THE SHIFT. ON ROOM AIR, TOLERATED. MAINTAINED IV ACCESS ON LEFT HAND #22G, SL, C/D/I. MAINTAINED HD ACCESS RIGHT INGUINAL AREA WITH CLEAN AND DRY DRESSING. WITH HENRIQUEZ DRAINING VIA GRAVITY WITH YELLOW URINE. NEEDS ATTENDED. SAFETY MEASURES IN PLACE: BED IN LOWEST AND LOCKED POSITION, SIDE RAILS UP X2, TRAY TABLE AND CALL LIGHT WITHIN EASY REACH. WILL ENDORSE CALLY TO H[employer]ORIAN [employer]EARCH ASSISTANT.
--- NOTE | 2022-10-02 19:30 | NUR ---
MS RN OPENING NOTE RECEIVED PATIENT AWAKE IN BED. PATIENT IS A/O X 3, ABLE TO MAKE NEEDS KNOWN. NO C/O PAIN/DISCOMFORT AT THIS TIME. ON ROOM AIR, TOLERATING WELL, NO SIGN OF ACUTE RESPIRATORY DISTRESS. IV ACCESS ON LEFT HAND #22G, SL. NOTED WITH HENRIQUEZ DRAINING VIA GRAVITY WITH YELLOW URINE. RIGHT FEMORAL HD CATHETER NOTED. PLAN FOR HD PERMACATH PLACEMENT ON Thursday10/06/22 PER PREVIOUS RN NURSE REPORT. ALL SAFETY MEASURES IN PLACE: BED IN LOWEST AND LOCKED POSITION, SIDE RAILS UP X2, TRAY AND CALL LIGHT WITHIN EASY REACH. WILL CONTINUE TO MONITOR CLOSELY.
[2022-10-02 20:00] VITALS: BP 144/79
[2022-10-02] MEDS: INSULIN GLARGINE, 100 UNIT/ML CARTRIDGE SQ SCH (22:16)
[2022-10-02] MEDS: *INSULIN REGULAR(HUMULIN R)HUM 100 UNIT/ML VIAL SQ PRN (22:18)
[2022-10-03] VITALS (7 sets, daily range): BP systolic 123–155; BP diastolic 63–83
[2022-10-03] MEDS: BLOOD SUGAR DIAGNOSTIC 1 EACH STRIP VI SCH ×4 (05:54→22:21)
[2022-10-03] MEDS: INSULIN REGULAR, HUMAN 100 UNIT/ML 3 ML VIAL SQ PRN ×3 (05:56→17:51)
[2022-10-03 06:53] LABS: BASOPHILS # (AUTO) 0.1 K/uL (0.0-0.2); BASOPHILS % (AUTO) 0.8 % (0.0-2.0); EOSINOPHILS % (AUTO) 0.5 % (0.0-6.0); LYMPHOCYTES # (AUTO) 0.7 K/uL (0.8-4.8); MEAN CORPUSCULAR HGB CONC 32 g/dl (31.0-36.0); MEAN CORPUSCULAR VOLUME 87 fL (80-96); MONOCYTES # (AUTO) 0.8 K/uL (0.1-1.30); MONOCYTES % (AUTO) 7.4 % (2.0-12.0); NEUTROPHILS # (AUTO) 9.7 K/uL (1.8-8.9); NEUTROPHILS % (AUTO) 85.3 % (43.0-81.0); PLATELET COUNT (AUTO) 339 K/uL (150-450); RED BLOOD CELL COUNT(AUTO) 2.28 MIL/uL (4.5-6.0); WHITE BLOOD COUNT (AUTO) 11.4 K/uL (4.3-11.0)
[2022-10-03 06:58] LABS: HEMATOCRIT 20 % (39-51); HEMOGLOBIN 6.4 g/dL (13.5-17.5)
--- NOTE | 2022-10-03 06:58 | NUR ---
MS RN CLOSING NOTE PATIENT AWAKE IN BED. PATIENT IS A/O X 3, ABLE TO MAKE NEEDS KNOWN. NO C/O PAIN/DISCOMFORT AT THIS TIME. ON ROOM AIR, TOLERATING WELL, NO SIGN OF ACUTE RESPIRATORY DISTRESS. IV ACCESS ON LEFT HAND #22G, SL. NOTED WITH HENRIQUEZ DRAINING VIA GRAVITY WITH YELLOW URINE. RIGHT FEMORAL HD CATHETER NOTED. PLAN FOR HD PERMACATH PLACEMENT ON Thursday10/06/22 PER PREVIOUS RN NURSE REPORT. ALL SAFETY MEASURES IN PLACE: BED IN LOWEST AND LOCKED POSITION, SIDE RAILS UP X2, TRAY AND CALL LIGHT WITHIN EASY REACH. WILL ENDORSE FOR CALLY.
[2022-10-03 07:19] LABS: CALCIUM, SERUM 8.2 mg/dL (8.5-10.1); CREATININE 4.6 mg/dL (0.6-1.3); MAGNESIUM 1.9 mg/dL (1.8-2.4); PHOSPHORUS 4.3 mg/dL (2.5-4.9); POTASSIUM 4.6 mmol/L (3.5-5.1)
[2022-10-03] MEDS: ATORVASTATIN 40 MG TABLET PO SCH (08:23)
[2022-10-03] MEDS: FLUOXETINE HCL 20 MG CAPSULE PO SCH (08:23)
[2022-10-03] MEDS: CHOLECALCIFEROL (VITAMIN D 3) 400 UNIT TABLET PO SCH (08:24)
[2022-10-03] MEDS: PANTOPRAZOLE 40 MG TABLET.DR PO SCH (08:24)
[2022-10-03] MEDS: AMLODIPINE BESYLATE 5 MG TABLET PO SCH (08:24)
[2022-10-03] MEDS: TAMSULOSIN 0.4 MG CAP.SR.24H PO SCH (08:29)
[2022-10-03 11:36] LABS: BAND % (MANUAL) 3 % (0.0-5.0); BASOPHILS % (MANUAL) 0 % (0.0-2.0); EOSINOPHILS % (MANUAL) 0 % (0-4); LYMPHOCYTES % (MANUAL) 5 % (16-48); MONOCYTES % (MANUAL) 5 % (0-11.0); NEUTROPHILS % (MANUAL) 87 (42-76)
--- NOTE | 2022-10-03 12:00 | NUR ---
Rt Femoral temp HD catheter not working, for perm cath insertion anitra. 10/04/22, Dr Gillette made aware
[2022-10-03] MEDS ORDERED: POLYETHYLENE GLYCOL 3350 17 GM POWD.PACK PO PRN (12:30)
[2022-10-03] MEDS: DOCUSATE SODIUM 100 MG CAPSULE PO SCH ×2 (13:28→17:48)
--- NOTE | 2022-10-03 18:45 | NUR ---
MS RN CLOSING NOTE PATIENT AWAKE IN BED. PATIENT IS A/O X 3, ABLE TO MAKE NEEDS KNOWN. NO C/O PAIN/DISCOMFORT AT THIS TIME. ON ROOM AIR, TOLERATING WELL, NO SIGN OF ACUTE RESPIRATORY DISTRESS. IV ACCESS ON LEFT HAND #22G, SL. NOTED WITH HGB OF 6.4 AND 1 PACK RBC GIVEN , BM X1 NOTED , NOTED WITH HENRIQUEZ DRAINING VIA GRAVITY WITH YELLOW URINE. RIGHT FEMORAL HD CATHETER NOTED. PLAN FOR HD PERMACATH PLACEMENT ON 10/04/22 AND WILL BE NPO TONIGHT AFTER MIDNIGHT . ALL SAFETY MEASURES IN PLACE: BED IN LOWEST AND LOCKED POSITION, SIDE RAILS UP X2, TRAY AND CALL LIGHT WITHIN EASY REACH. WILL ENDORSE FOR CALLY.
--- NOTE | 2022-10-03 19:40 | NUR ---
MS RN OPENING NOTE RECEIVED PATIENT IN BED; AWAKE, A/O X 3. ON ROOM AIR; TOLERATING WELL. BREATHING EVEN AND UNLABORED. IN NO ACUTE DISTRESS. DENIES ANY PAIN OR DISCOMFORT AT THIS TIME. ABLE TO MAKE NEEDS KNOWN. WITH IV ACCESS ON LEFT HAND 2g; PATENT, INTACT AND SALINE LOCKED. WITH RIGHT FEMORAL HD CATHETER IN PLACE. SAFETY PRECAUTIONS IMPLEMENTED: CALL LIGHT AND TABLE WITHIN REACH, SIDE RAILS UP X 3, BED IN LOWEST LOCKED POSITION. WILL CONTINUE PLAN OF CARE.
[2022-10-03] MEDS: SENNOSIDES 8.6 MG TABLET PO SCH (21:50)
[2022-10-03] MEDS: INSULIN GLARGINE, 100 UNIT/ML CARTRIDGE SQ SCH (22:00)
[2022-10-03] MEDS: *INSULIN REGULAR(HUMULIN R)HUM 100 UNIT/ML VIAL SQ PRN (23:00)
[2022-10-04] MEDS: BLOOD SUGAR DIAGNOSTIC 1 EACH STRIP VI SCH ×4 (06:28→20:48)
--- NOTE | 2022-10-04 06:40 | NUR ---
MS MELISSA CLOSING NOTE PATIENT IN BED; AA/O X 3. STABLE ON ROOM AIR. IN NO APPARENT DISTRESS. NO C/O ANY PAIN OR DISCOMFORT AT THIS TIME. WITH IV ACCESS ON LEFT HAND 2g; PATENT, INTACT AND SALINE LOCKED. WITH RIGHT FEMORAL HD CATHETER IN PLACE. SAFETY MEASURES IN PLACE: CALL LIGHT AND TABLE WITHIN REACH, SIDE RAILS UP X 3, BED IN LOWEST LOCKED POSITION. ENDORSED TO MORNING SHIFT FOR CALLY. Addendum: 10/04/22 at 0708 by SAMAN PÉREZ RN LEFT HAND 20g
[2022-10-04 07:00] VITALS: BP 110/61
[2022-10-04 07:15] LABS: BASOPHILS # (AUTO) 0.1 K/uL (0.0-0.2); BASOPHILS % (AUTO) 0.6 % (0.0-2.0); EOSINOPHILS % (AUTO) 0.5 % (0.0-6.0); HEMATOCRIT 24 % (39-51); HEMOGLOBIN 7.7 g/dL (13.5-17.5); LYMPHOCYTES # (AUTO) 0.7 K/uL (0.8-4.8); LYMPHOCYTES % (AUTO) 5.8 % (20.0-44.0); MEAN CORPUSCULAR HGB CONC 32 g/dl (31.0-36.0); MEAN CORPUSCULAR VOLUME 88 fL (80-96); MONOCYTES # (AUTO) 0.8 K/uL (0.1-1.30); MONOCYTES % (AUTO) 6.5 % (2.0-12.0); NEUTROPHILS # (AUTO) 10.6 K/uL (1.8-8.9); NEUTROPHILS % (AUTO) 86.6 % (43.0-81.0); PLATELET COUNT (AUTO) 390 K/uL (150-450); RED BLOOD CELL COUNT(AUTO) 2.71 MIL/uL (4.5-6.0); WHITE BLOOD COUNT (AUTO) 12.3 K/uL (4.3-11.0)
[2022-10-04] MEDS: PANTOPRAZOLE 40 MG TABLET.DR PO SCH (07:30)
--- NOTE | 2022-10-04 07:30 | NUR ---
MS RN OPENING NOTES RECEIVED PATIENT ON BED AWAKE AND A/O X3. ON ROOM AIR TOLERATING WELL. NO SOB NOTED. NOT IN DISTRESS. WITH NO COMPLAINTS OF PAIN AT THIS TIME. NPO MAINTAINED. PATIENT IS FOR PERMACATH PLACEMENT TODAY. WITH IV ACCESS AT THE LEFT HAND [id number] LOCKED, PATENT AND INTACT. SAFETY MEASURES IN PLACED. CALL LIGHT WITHIN REACH. BED ON LOWEST LOCKED POSITION, SIDE RAILS UP X2,. WILL CONTINUE TO MONITOR.
[2022-10-04 07:55] LABS: CALCIUM, SERUM 8.6 mg/dL (8.5-10.1); CREATININE 4.4 mg/dL (0.6-1.3); MAGNESIUM 1.9 mg/dL (1.8-2.4); PHOSPHORUS 4.2 mg/dL (2.5-4.9); POTASSIUM 4.8 mmol/L (3.5-5.1)
[2022-10-04] MEDS: FLUOXETINE HCL 20 MG CAPSULE PO SCH (09:00)
[2022-10-04] MEDS: AMLODIPINE BESYLATE 5 MG TABLET PO SCH (09:00)
[2022-10-04] MEDS: TAMSULOSIN 0.4 MG CAP.SR.24H PO SCH (09:00)
[2022-10-04] MEDS: ATORVASTATIN 40 MG TABLET PO SCH (09:00)
[2022-10-04] MEDS: CHOLECALCIFEROL (VITAMIN D 3) 400 UNIT TABLET PO SCH (09:00)
[2022-10-04] MEDS: DOCUSATE SODIUM 100 MG CAPSULE PO SCH ×2 (09:00→17:24)
[2022-10-04] MEDS ORDERED: LIDOCAINE 1% INJ 50 ML MDV IJ ONE (09:41)
[2022-10-04] MEDS ORDERED: HEPARIN SODIUM, PORCINE 1,000 UNIT/ML VIAL ONE (09:41)
[2022-10-04] MEDS ORDERED: ANESTHESIA TRAY IN PYXIS 1 EA TRAY MC ONE (09:53)
[2022-10-04] MEDS ORDERED: FAMOTIDINE/PF INJ 20 MG/2 ML VIAL IV ONE (10:16)
[2022-10-04] MEDS ORDERED: KETAMINE HCL (500MG/10ML) 50 MG/ML VIAL ONE (10:16)
[2022-10-04] MEDS ORDERED: FENTANYL PF 100MCG/2ML AMPUL ONE (10:16)
[2022-10-04 12:00] VITALS: BP 134/74
[2022-10-04] MEDS ORDERED: DOCU100C36 PO (14:32)
[2022-10-04] MEDS ORDERED: Insulin Glargine,Hum SQ (14:32)
[2022-10-04] MEDS: MORPHINE SULFATE INJ 2 MG/ML DISP.SYRIN IV PRN (14:49)
[2022-10-04 16:00] VITALS: BP 151/82
[2022-10-04] MEDS: INSULIN REGULAR, HUMAN 100 UNIT/ML 3 ML VIAL SQ PRN (17:27)
--- NOTE | 2022-10-04 18:57 | NUR ---
MS RN CLOSING NOTES PATIENT ON BED RESTING AND A/O X3. ON ROOM AIR TOLERATING WELL. NO SOB NOTED. NOT IN DISTRESS. WITH NO COMPLAINTS OF PAIN AT THIS TIME. S/P PERMACATH PLACEMENT AT THE RIGHT UPPER CHEST WALL CDI. PREVIOUS SITE OF HD CATH AT THE GROIN - CDI. WITH IV ACCESS AT THE LEFT HAND [id number] LOCKED, PATENT AND INTACT. DUE MEDS GIVEN. SAFETY MEASURES IN PLACED. CALL LIGHT WITHIN REACH. BED ON LOWEST LOCKED POSITION, SIDE RAILS UP X2,. WILL ENDORSE TO NEXT SHIFT FOR CALLY.
--- NOTE | 2022-10-04 19:00 | NUR ---
received in bed when name spoken eye contact present verbalizes his needs bed alarm on urinal at the bed side noted 50 ml clear yellow urine rt c/w perm cath
--- NOTE | 2022-10-04 19:30 | NUR ---
RN NOTES PHARMACY IS CLOSED ALREADY FOR PICK-UP OF PATIENT'S HOME MEDICATION. CHARGE NURSE IS AWARE. THEY WILL FOLLOW-UP TOMORROW.
[2022-10-04 20:00] VITALS: BP 121/64
[2022-10-04] MEDS: *INSULIN REGULAR(HUMULIN R)HUM 100 UNIT/ML VIAL SQ PRN (20:54)
[2022-10-04] MEDS: SENNOSIDES 8.6 MG TABLET PO SCH (21:00)
[2022-10-04] MEDS: INSULIN GLARGINE, 100 UNIT/ML CARTRIDGE SQ SCH (22:00)
--- NOTE | 2022-10-04 22:59 | NUR ---
[facility] here take him to rehab pt is alert and OR X3 S/L removed voided 50 ml clear yellow in the urinal aware he is being transfered to rehab belongings in a bag and given to the [facility] p/u
== END 2022-10-04 23:10 | DRG 871 ==
LOC: ER 12:16 → ICU 15:16 → MED 09-16 13:07
PROVIDERS: ADMIT Student in an Organized Health Care Education/Training Program; ATTEND Nurse Practitioner Acute Care
PROC: 06HM33Z Insertion of Infusion Device into Right Femoral Vein, Percutaneous Approach (ICD-10-PCS; principal; 2022-09-21)
PROC: B54BZZA Ultrasonography of Right Lower Extremity Veins, Guidance (ICD-10-PCS; 2022-09-21)
PROC: 5A1D70Z Performance of Urinary Filtration, Intermittent, Less than 6 Hours Per Day (ICD-10-PCS; 2022-09-21)
PROC: 30233N1 Transfusion of Nonautologous Red Blood Cells into Peripheral Vein, Percutaneous Approach (ICD-10-PCS; 2022-09-22)
PROC: 0JH63XZ Insertion of Tunneled Vascular Access Device into Chest Subcutaneous Tissue and Fascia, Percutaneous Approach (ICD-10-PCS; 2022-10-04)
PROC: 05HM33Z Insertion of Infusion Device into Right Internal Jugular Vein, Percutaneous Approach (ICD-10-PCS; 2022-10-04)
PROC: B513YZA Fluoroscopy of Right Jugular Veins using Other Contrast, Guidance (ICD-10-PCS; 2022-10-04)
DX: A41.50 Gram-negative sepsis, unspecified (principal); E11.10 Type 2 diabetes mellitus with ketoacidosis without coma; N17.0 Acute kidney failure with tubular necrosis; N18.6 End stage renal disease; J69.0 Pneumonitis due to inhalation of food and vomit; E44.0 Moderate protein-calorie malnutrition; N39.0 Urinary tract infection, site not specified; I12.0 Hypertensive chronic kidney disease with stage 5 chronic kidney disease or end stage renal disease; R64 Cachexia; E87.1 Hypo-osmolality and hyponatremia; F05 Delirium due to known physiological condition; B96.89 Other specified bacterial agents as the cause of diseases classified elsewhere; Z20.822 Contact with and (suspected) exposure to COVID-19; E11.22 Type 2 diabetes mellitus with diabetic chronic kidney disease; Z79.899 Other long term (current) drug therapy; Z79.84 Long term (current) use of oral hypoglycemic drugs; Z79.4 Long term (current) use of insulin; E78.5 Hyperlipidemia, unspecified; E55.9 Vitamin D deficiency, unspecified; D63.1 Anemia in chronic kidney disease; E87.5 Hyperkalemia; E86.1 Hypovolemia; E88.09 Other disorders of plasma-protein metabolism, not elsewhere classified; E11.65 Type 2 diabetes mellitus with hyperglycemia; Z99.2 Dependence on renal dialysis; F32.9 Major depressive disorder, single episode, unspecified; B96.1 Klebsiella pneumoniae [K. pneumoniae] as the cause of diseases classified elsewhere; E11.649 Type 2 diabetes mellitus with hypoglycemia without coma
CPT/HCPCS: 36415; 71045-TC; 76770-TC; 80048-TC; 80061-TC; 80076-TC; 81001; 82570-TC; 82962-TC; 83540-TC; 83605-TC; 83735-TC; 84100-TC; 84300-TC; 84443-TC; 84484-TC; 85025-TC; 85730-TC; 86704; 86705; 86706; 86803; 86850-TC; 87040-TC; 87081-TC; 87086-TC; 87340; 87806; 90935-TC; 92526; 92611-TC; 97110-TC; 97530-TC; A4217; A4223; A6403; C1750; C1757; C1769; C9803; G0378; J0692; J0696; J1642; J1644; J1815; J2270; J2405; J2543; J2704; J3010; J3370; J3490; J7030; J7040; J7050; J7060; P9016

== ENCOUNTER 2022-10-23 19:05 | Inpatient (IN) | payer OTHER ==
[~2022-10-23] VITALS: Ht 165.1 cm; Wt 74.4 kg
[~2022-10-23 19:05] MED LIST: ACET-2605 PO; AMLO-212 PO; CHOL400T PO; DOCU100C36 PO; FLUO20TA28 PO; HUM10VIA SQ; Insulin Glargine,Hum SQ; MIRT-90 PO; ONDA4TAB5 PO; PANT40TA2 PO; ROSU40TA23 PO; TAMS-12 PO
--- NOTE | 2022-10-23 19:30 | NUR ---
BIBA FROM SNF WITH CC OF LOW HGB 6.7 AND RIGHT FOOT SWELLING. PT AAO X 4, IN NO ACUTE DISTRESS, BREATHING UNLABORED. PT REPORTS BLACK TARRY STOOL WELL. PT ATTACHED TO MONITOR AND PULSE OX. AWAITING MD ADDISON.
--- NOTE | 2022-10-23 19:51 | NUR ---
DR DHILLON AT BEDSIDE
--- NOTE | 2022-10-23 20:09 | NUR ---
IV LINE STARTED AT LAC 18G, BLOOD DRAWN SENT TO LAB
[2022-10-23 20:16] LABS: BASOPHILS # (AUTO) 0.1 K/uL (0.0-0.2); BASOPHILS % (AUTO) 0.5 % (0.0-2.0); LYMPHOCYTES # (AUTO) 1.1 K/uL (0.8-4.8); LYMPHOCYTES % (AUTO) 8.8 % (20.0-44.0); MEAN CORPUSCULAR HGB CONC 31 g/dl (31.0-36.0); MEAN CORPUSCULAR VOLUME 83 fL (80-96); MONOCYTES # (AUTO) 1.4 K/uL (0.1-1.30); MONOCYTES % (AUTO) 11.2 % (2.0-12.0); NEUTROPHILS # (AUTO) 9.7 K/uL (1.8-8.9); NEUTROPHILS % (AUTO) 78.5 % (43.0-81.0); PLATELET COUNT (AUTO) 320 K/uL (150-450); RED BLOOD CELL COUNT(AUTO) 2.47 MIL/uL (4.5-6.0); WHITE BLOOD COUNT (AUTO) 12.4 K/uL (4.3-11.0)
[2022-10-23 20:52] LABS: ALBUMIN 1.9 g/dL (3.4-5.0); BILIRUBIN,DIRECT 0.1 mg/dL (0.0-0.2); BILIRUBIN,TOTAL 0.3 mg/dL (0.2-1.0); CALCIUM, SERUM 8.3 mg/dL (8.5-10.1); CREATININE 3.1 mg/dL (0.6-1.3); POTASSIUM 3.9 mmol/L (3.5-5.1); TOTAL PROTEIN, SERUM 7.2 g/dL (6.4-8.2)
--- NOTE | 2022-10-23 20:58 | NUR ---
COVID SWAB DONE AND SENT TO LAB
[2022-10-23 21:12] LABS: HEMATOCRIT 20 % (39-51); HEMOGLOBIN 6.4 g/dL (13.5-17.5)
--- NOTE | 2022-10-23 21:13 | NUR ---
CRITICAL VALUE HGB 6.4/ HCT 20. RECEIVED A CALL FROM LUNA BECERRA
[2022-10-23 21:29] LABS: BAND % (MANUAL) 3 % (0.0-5.0); LYMPHOCYTES % (MANUAL) 9 % (16-48); MONOCYTES % (MANUAL) 8 % (0-11.0); NEUTROPHILS % (MANUAL) 80 (42-76)
--- NOTE | 2022-10-23 22:07 | NUR ---
CALLED [facility] PAGED LAUREN FOR ADMISSION
--- NOTE | 2022-10-23 23:11 | NUR ---
report given to Lucia TORRES for continuation of care
--- NOTE | 2022-10-23 23:23 | NUR ---
TRANSFERRED TO ROOM VIA ACLS PROTOCOL
[2022-10-23] MEDS ORDERED: MORPHINE SULFATE INJ 2 MG/ML DISP.SYRIN IV PRN (23:30)
[2022-10-23] MEDS ORDERED: DEXTROSE 50%-WATER 50 ML DISP.SYRIN IV PRN (23:30)
[2022-10-23] MEDS ORDERED: hydrALAZINE HCL IV 20 MG VIAL IV PRN (23:30)
[2022-10-23] MEDS ORDERED: ONDANSETRON HCL/PF 4 MG/2 ML VIAL IVP PRN (23:30)
--- NOTE | 2022-10-23 23:35 | NUR ---
CANDY CATCHER ADMITTING NOTES RECEIVED PATIENT IN BED AWAKE. A/OX4. ABLE TO MAKE NEEDS KNOWN. PATIENT ON ROOM AIR TOLERATING WELL; NO SIGNS OF SOB, BREATHING EVENLY AND UNLABORED. NOT IN DISTRESS NOTED. PATIENT DENIES OF ANY PAIN AND DISCOMFORT AT THIS TIME. PATIENT ON TELE MONITOR WITH A READING OF SINUS RHYTHM 73BPM. SKIN ASSESSMENT IS DONE; SKIN IS INTACT. PATIENT WITH PERMACATH ON RIGHT UPPER CHEST DRESSING IS INTACT NOTED. RECEIVED PATIENT WITH IV ACCESS ON LEFT AC #18 NOTED TO BE PATENT AND INTACT INFUSING PRBC @150CC/HR FROM ER. PATIENT IS TOLERATING WELL. NO ADVERSE REACTION TO THE TRANSFUSING BLOOD NOTED. PATIENT IS ORIENTED TO THE ROOM AND HOW TO USE THE CALL LIGHT. PATIENT VERBALIZES UNDERSTANDING. ALL BELONGINGS ARE ACCOUNTED FOR. SAFETY MEASURE IN PLACED; BED LOCKED AND IN THE LOWEST POSITION, SIDE RAILS UP X2, CALL LIGHT AND BEDSIDE TABLE WITHIN PATIENTS REACH.
--- NOTE | 2022-10-23 23:45 | NUR ---
RN NOTE ADJUSTED BLOOD TRANSFUSION RATE TO 120CC/HR PER UNIT PROTOCOL.PATIENT TOLERATING WELL. ASSESSED PATIENT; NOTED TO BE COMFORTABLE AND NOT ON ANY ACUTE DISTRESS. NO SOB, AFEBRILE, NO CHILLS.
[2022-10-23] MEDS: BLOOD SUGAR DIAGNOSTIC 1 EACH STRIP VI SCH (23:46)
--- NOTE | 2022-10-24 01:42 | NUR ---
RN NOTE BLOOD TRANSFUSION OF 1 UNIT OF PRBC IS GIVEN. PATIENT TOLERATED WELL. NO SIGNS AND SYMPTOMS OF ADVERSE REACTION TO THE TRANSFUSION. PATIENT VITAL SIGNS AT THE END OF THE TRANSFUSION IS TEMP. 98.6 HR 73 RR 17 BP 136/67. NO COMPLAINS OF PAIN AND DISCOMFORT.
--- NOTE | 2022-10-24 03:35 | NUR ---
RN NOTE HH OF PATIENT IS CHECKED RESULT IS 7.8
[2022-10-24 03:46] LABS: HEMOGLOBIN 7.8 g/dL (13.5-17.5)
--- NOTE | 2022-10-24 06:41 | NUR ---
POWER BUILDER DEVELOPER CLOSING NOTES PATIENT IN BED SLEEPING BUT EASILY AWAKEN WHEN CALLED BY NAME. A/O X4. ABLE TO MAKE NEEDS KNOWN. PATIENT WITH IV ACCESS ON LEFT AC #18 SALINE LOCK NOTED TO BE PATENT AND INTACT. PATIENT WITH PERMACATH ON RIGHT UPPER CHEST NOTED TO BE CLEAN AND INTACT. PATIENT ON ROOM AIR TOLERATING WELL. NO SIGNS OF SOB, NOT IN DISTRESS. PATIENT HAVE NO COMPLAINS OF PAIN OR DISCOMFORT AT THIS TIME. ALL DUE MEDICATIONS ARE GIVEN, ALL NEEDS ARE MET. MADE SURE PATIENT IS COMFORTABLE. SAFETY MEASURE IN PLACED; BED LOCKED AND IN LOWEST POSITION, SIDE RAILS UP X3, PATIENT ON SEMI FOWLERS POSITON, CALL LIGHT AND BED SIDE TABLE WITHIN PATIENTS REACH. WILL ENDORSE TO NEXT SHIFT NURSE FOR CONTINUITY OF CARE.
[2022-10-24] MEDS: INSULIN REGULAR, HUMAN 100 UNIT/ML 3 ML VIAL SQ PRN ×3 (07:02→17:24)
--- NOTE | 2022-10-24 07:05 | NUR ---
RN OPENING NOTE- PT IN BED, A/O X4. ABLE TO MAKE NEEDS KNOWN. PATIENT WITH IV ACCESS ON LEFT AC #18 SALINE LOCK NOTED TO BE PATENT AND INTACT. PATIENT WITH PERMACATH ON RIGHT UPPER CHEST . PATIENT ON ROOM AIR TOLERATING WELL. SAFETY MEASURES IN PLACED; BED LOCKED AND IN LOWEST POSITION, SIDE RAILS UP X3, PATIENT ON SEMI FOWLERS POSITION, CALL LIGHT AND BED SIDE TABLE WITHIN PATIENTS REACH. MONITOR / ASSIST
[2022-10-24] MEDS: BLOOD SUGAR DIAGNOSTIC 1 EACH STRIP VI SCH ×4 (07:06→22:06)
[2022-10-24 07:25] LABS: BASOPHILS # (AUTO) 0.1 K/uL (0.0-0.2); BASOPHILS % (AUTO) 0.4 % (0.0-2.0); HEMATOCRIT 24 % (39-51); HEMOGLOBIN 7.7 g/dL (13.5-17.5); LYMPHOCYTES # (AUTO) 1.1 K/uL (0.8-4.8); LYMPHOCYTES % (AUTO) 8.5 % (20.0-44.0); MEAN CORPUSCULAR HGB CONC 32 g/dl (31.0-36.0); MEAN CORPUSCULAR VOLUME 83 fL (80-96); MONOCYTES # (AUTO) 1.5 K/uL (0.1-1.30); MONOCYTES % (AUTO) 11.4 % (2.0-12.0); NEUTROPHILS # (AUTO) 10.2 K/uL (1.8-8.9); NEUTROPHILS % (AUTO) 78.7 % (43.0-81.0); PLATELET COUNT (AUTO) 315 K/uL (150-450); RED BLOOD CELL COUNT(AUTO) 2.92 MIL/uL (4.5-6.0)
[2022-10-24 07:39] LABS: ALBUMIN 1.8 g/dL (3.4-5.0); BILIRUBIN,TOTAL 0.5 mg/dL (0.2-1.0); CALCIUM, SERUM 8.5 mg/dL (8.5-10.1); CREATININE 2.9 mg/dL (0.6-1.3); MAGNESIUM 1.8 mg/dL (1.8-2.4); PHOSPHORUS 3.9 mg/dL (2.5-4.9); POTASSIUM 3.7 mmol/L (3.5-5.1)
[2022-10-24] MEDS: PANTOPRAZOLE 40 MG TABLET.DR PO SCH (07:51)
[2022-10-24] MEDS: ACETAMINOPHEN 325 MG TABLET PO PRN (08:16)
--- NOTE | 2022-10-24 08:17 | NUR ---
RN Note: Tep. 99.3. Tylenol 650 mg administered.
[2022-10-24] MEDS: AMLODIPINE BESYLATE 5 MG TABLET PO SCH (08:53)
[2022-10-24] MEDS: DOCUSATE SODIUM 100 MG CAPSULE PO SCH ×2 (08:53→17:21)
[2022-10-24] MEDS: CHOLECALCIFEROL (VITAMIN D 3) 400 UNIT TABLET PO SCH (08:53)
[2022-10-24] MEDS: TAMSULOSIN 0.4 MG CAP.SR.24H PO SCH (08:53)
--- NOTE | 2022-10-24 09:33 | NUR ---
RN NOTE- TEMP RECHECK- 99.0, TYLENOL EFFECTIVE. WILL MONITOR
[2022-10-24 16:50] VITALS: BP 124/46
--- NOTE | 2022-10-24 18:15 | NUR ---
RN CLOSING NOTE- UNCHANGED, PT A/O X4. ABLE TO MAKE NEEDS KNOWN. PATIENT WITH IV ACCESS ON LEFT AC #18 SALINE LOCK NOTED TO BE PATENT AND INTACT. PATIENT WITH PERMACATH ON RIGHT UPPER CHEST . PATIENT ON ROOM AIR TOLERATING WELL. SAFETY MEASURES IN PLACED; BED LOCKED AND IN LOWEST POSITION, SIDE RAILS UP X3, PATIENT ON SEMI FOWLERS POSITION, CALL LIGHT AND BED SIDE TABLE WITHIN PATIENTS REACH. MONITOR / ASSIST
--- NOTE | 2022-10-24 19:30 | NUR ---
yohannes rn opening received patient a/ox4. no s/s of apparent distress on room air. denies pain at this time. reading sr on the tele monitor. IV access on LAC #18g on saline lock. RCW permacath intact. patient ambulates with unsteady gait, needs assistance to the restroom. safety in place-- bed in lowest locked position, call light within reach, side rails up x2, bed alarm on. will cont. with patient's plan of care.
[2022-10-24 20:00] VITALS: BP 122/64
[2022-10-24] MEDS: MIRTAZAPINE 15 MG TABLET PO SCH (22:00)
[2022-10-24] MEDS: ATORVASTATIN 40 MG TABLET PO SCH (22:00)
[2022-10-24] MEDS: *INSULIN REGULAR(HUMULIN R)HUM 100 UNIT/ML VIAL SQ PRN (22:10)
[2022-10-25] VITALS: BP 120/71
[2022-10-25 04:00] VITALS: BP 127/71
[2022-10-25 05:49] LABS: BASOPHILS # (AUTO) 0.1 K/uL (0.0-0.2); BASOPHILS % (AUTO) 0.6 % (0.0-2.0); EOSINOPHILS % (AUTO) 1.5 % (0.0-6.0); HEMATOCRIT 25 % (39-51); LYMPHOCYTES % (AUTO) 8.7 % (20.0-44.0); MEAN CORPUSCULAR HGB CONC 32 g/dl (31.0-36.0); MEAN CORPUSCULAR VOLUME 83 fL (80-96); MONOCYTES # (AUTO) 1.3 K/uL (0.1-1.30); MONOCYTES % (AUTO) 10.9 % (2.0-12.0); NEUTROPHILS # (AUTO) 9.4 K/uL (1.8-8.9); NEUTROPHILS % (AUTO) 78.3 % (43.0-81.0); PLATELET COUNT (AUTO) 358 K/uL (150-450); RED BLOOD CELL COUNT(AUTO) 3.05 MIL/uL (4.5-6.0)
[2022-10-25 06:08] LABS: CALCIUM, SERUM 8.4 mg/dL (8.5-10.1); CREATININE 2.8 mg/dL (0.6-1.3)
[2022-10-25] MEDS: BLOOD SUGAR DIAGNOSTIC 1 EACH STRIP VI SCH ×4 (06:40→21:54)
[2022-10-25] MEDS: INSULIN REGULAR, HUMAN 100 UNIT/ML 3 ML VIAL SQ PRN ×3 (06:43→17:08)
--- NOTE | 2022-10-25 07:24 | NUR ---
noc rn closing all needs attended. report given to deondre Martinez for continuity of patient care.
[2022-10-25] MEDS: PANTOPRAZOLE 40 MG TABLET.DR PO SCH (07:29)
--- NOTE | 2022-10-25 07:30 | NUR ---
ATTENDANT COIN OPERATED LAUNDRY OPENING NOTES RECEIVED PATIENT IN BED AWAKE. A/O X 4, ABLE TO MAKE NEEDS KNOWN. NO C/O PAIN OR DISCOMFORT AT THIS TIME. ON ROOM AIR TOLERATING WELL, NO SIGNS OF SOB. ON BOBBIN PAINTER WITH CURRENT READING OF SR, HR-70, NO SIGN OF CARDIAC DISTRESS NOTED. WITH PERMACATH ON RIGHT UPPER CHEST WITH CLEAN AND INTACT DRESSING. IV ACCESS ON LEFT AC #18G, C/D/I. SAFETY MEASURE IN PLACED: BED LOCKED AND IN THE LOWEST POSITION, SIDE RAILS UP X2, CALL LIGHT AND BEDSIDE TABLE WITHIN EASY REACH. WILL CONTINUE TO MONITOR.
[2022-10-25 07:45] LABS: BILIRUBIN,URINE NEGATIVE (NEGATIVE); COLOR,URINE YELLOW (YELLOW); LEUKOCYTE ESTERASE ,URINE 3+ (NEGATIVE); NITRITE, URINE NEGATIVE (NEGATIVE); PROTEIN,URINE TRACE mg/dl (NEGATIVE); UGLUCOSE NEGATIVE (NEGATIVE); UROBILINOGEN,URINE 0.2 EU/dL (0.2)
[2022-10-25 08:00] VITALS: BP 146/72
[2022-10-25] MEDS: CHOLECALCIFEROL (VITAMIN D 3) 400 UNIT TABLET PO SCH (08:14)
[2022-10-25] MEDS: DOCUSATE SODIUM 100 MG CAPSULE PO SCH ×2 (08:14→16:43)
[2022-10-25] MEDS: TAMSULOSIN 0.4 MG CAP.SR.24H PO SCH (08:14)
[2022-10-25] MEDS: AMLODIPINE BESYLATE 5 MG TABLET PO SCH (08:15)
[2022-10-25 08:49] LABS: BACTERIA,URINE Few /HPF (None Seen); SQUAMOUS EPITHELIAL CELL,UR Rare /HPF (None Seen); WBC,URINE TOO NUMEROUS TO COUN /HPF (0-3)
[2022-10-25] MEDS ORDERED: NICOTINE PATCH (21MG) 21 MG PATCH.TD24 TD SCH (09:00)
--- NOTE | 2022-10-25 09:45 | NUR ---
RN NOTES KORI CARR IN THE UNIT, INFORMED HER ON U/A RESULT.
[2022-10-25] MEDS: CEFEPIME 1 GM in IV D5W 50 ML IV SCH (11:12)
[2022-10-25 12:00] VITALS: BP 144/75
[2022-10-25 16:00] VITALS: BP 108/64
--- NOTE | 2022-10-25 18:45 | NUR ---
BANDER HAND CLOSING NOTES PATIENT RESTING IN BED. A/O X 4, ABLE TO MAKE NEEDS KNOWN. NO C/O PAIN OR DISCOMFORT WITHIN THE SHIFT. ON ROOM AIR TOLERATING WELL. ON WEIGHT TESTER WITH CURRENT READING OF SR, HR-70, NO SIGN OF CARDIAC DISTRESS NOTED. WITH PERMACATH ON RIGHT UPPER CHEST WITH CLEAN AND INTACT DRESSING. IV ACCESS ON LEFT AC #18G, SL. NEEDS ATTENDED. SAFETY MEASURE IN PLACED: BED LOCKED AND IN THE LOWEST POSITION, SIDE RAILS UP X2, CALL LIGHT AND TRAY TABLE WITHIN EASY REACH. WILL ENDORSE CALLY TO DOMESTIC VIOLENCE COUNSELOR.
--- NOTE | 2022-10-25 19:40 | NUR ---
MARKETING WRITER OPENING NOTE RECEIVED PATIENT IN BED, AND AWAKE. PT A/O X 4, ABLE TO MAKE NEEDS KNOWN. NO C/O PAIN OR DISCOMFORT AT THIS TIME. ON ROOM AIR, AND TOLERATING RA WELL. NO SOB, NO RESPIRATORY DISTRESS NOTED. ON BOARD LINING MACHINE OPERATOR WITH CURRENT READING OF SR, HR-71. WITH PERMA CATH ON RIGHT UPPER CHEST, WITH DRESSING CLEAN AND INTACT. IV ACCESS ON LEFT AC #18G, C/D/I. SAFETY MEASURE IN PLACED: BED LOCKED AND IN THE LOWEST POSITION, SIDE RAILS UP X2, CALL LIGHT AND BEDSIDE TABLE WITHIN EASY REACH. WILL CONTINUE TO MONITOR.
[2022-10-25 20:00] VITALS: BP 121/61
[2022-10-25] MEDS: MIRTAZAPINE 15 MG TABLET PO SCH (21:54)
[2022-10-25] MEDS: ATORVASTATIN 40 MG TABLET PO SCH (21:54)
[2022-10-25] MEDS: *INSULIN REGULAR(HUMULIN R)HUM 100 UNIT/ML VIAL SQ PRN (22:21)
[2022-10-25] MEDS: ACETAMINOPHEN 325 MG TABLET PO PRN (23:04)
[2022-10-26] VITALS: BP 123/68
[2022-10-26 04:00] VITALS: BP 122/59
[2022-10-26 06:04] LABS: BASOPHILS # (AUTO) 0.1 K/uL (0.0-0.2); BASOPHILS % (AUTO) 0.5 % (0.0-2.0); EOSINOPHILS % (AUTO) 1.7 % (0.0-6.0); HEMATOCRIT 26 % (39-51); HEMOGLOBIN 8.3 g/dL (13.5-17.5); LYMPHOCYTES # (AUTO) 1.3 K/uL (0.8-4.8); LYMPHOCYTES % (AUTO) 11.2 % (20.0-44.0); MEAN CORPUSCULAR HGB CONC 32 g/dl (31.0-36.0); MEAN CORPUSCULAR VOLUME 82 fL (80-96); MONOCYTES # (AUTO) 1.5 K/uL (0.1-1.30); MONOCYTES % (AUTO) 12.9 % (2.0-12.0); NEUTROPHILS # (AUTO) 8.4 K/uL (1.8-8.9); NEUTROPHILS % (AUTO) 73.7 % (43.0-81.0); PLATELET COUNT (AUTO) 424 K/uL (150-450); WHITE BLOOD COUNT (AUTO) 11.4 K/uL (4.3-11.0)
[2022-10-26 06:23] LABS: CALCIUM, SERUM 8.6 mg/dL (8.5-10.1); CREATININE 2.9 mg/dL (0.6-1.3); MAGNESIUM 1.8 mg/dL (1.8-2.4); POTASSIUM 4.2 mmol/L (3.5-5.1)
[2022-10-26] MEDS: INSULIN REGULAR, HUMAN 100 UNIT/ML 3 ML VIAL SQ PRN ×3 (06:31→17:45)
[2022-10-26] MEDS: BLOOD SUGAR DIAGNOSTIC 1 EACH STRIP VI SCH ×3 (06:32→17:44)
--- NOTE | 2022-10-26 06:48 | NUR ---
RUBBER STAMP DIES INSPECTOR CLOSING NOTE LEFT PATIENT SLEEPING IN BED. PT A/O X 4, ABLE TO MAKE NEEDS KNOWN. NO C/O PAIN OR DISCOMFORT AT THIS TIME. ON ROOM AIR, AND TOLERATING RA WELL. NO SOB, NO RESPIRATORY DISTRESS NOTED. ON NOVELTY PRINTING MACHINE OPERATOR WITH CURRENT READING OF SR. PERMA CATH ON RIGHT UPPER CHEST, WITH DRESSING CLEAN AND INTACT. IV ACCESS ON LEFT AC #18G. SAFETY MEASURE IN PLACED: BED LOCKED AND IN THE LOWEST POSITION, SIDE RAILS UP X2, CALL LIGHT AND BEDSIDE TABLE WITHIN EASY REACH. WILL ENDORSE PT TO MORNING SHIFT NURSE FOR CALLY.
[2022-10-26 07:00] VITALS: BP 136/81
--- NOTE | 2022-10-26 07:35 | NUR ---
OTR OWNER OPERATOR OPENING NOTE RECEIVED PATIENT IN BED, AND AWAKE, A/O X 4, ABLE TO MAKE NEEDS KNOWN. NO C/O PAIN OR DISCOMFORT AT THIS TIME. ON ROOM AIR, NO S/S OF SOB, DENIES PAIN AT THIS TIME. ON REWARDS CONSULTANT WITH CURRENT READING OF SR, HR-73. PERMA CATH ON RIGHT UPPER CHEST, DRESSING CLEAN AND INTACT. IV ACCESS LEFT AC #18G, PATENT AND INTACT. SAFETY MEASURES IN PLACE, CALL LIGHT AND BEDSIDE TABLE WITHIN EASY REACH; WILL CONTINUE WITH PLAN OF CARE DURING SHIFT.
[2022-10-26] MEDS: CHOLECALCIFEROL (VITAMIN D 3) 400 UNIT TABLET PO SCH (09:10)
[2022-10-26] MEDS: AMLODIPINE BESYLATE 5 MG TABLET PO SCH (09:10)
[2022-10-26] MEDS: TAMSULOSIN 0.4 MG CAP.SR.24H PO SCH (09:10)
[2022-10-26] MEDS: PANTOPRAZOLE 40 MG TABLET.DR PO SCH (09:11)
[2022-10-26] MEDS: DOCUSATE SODIUM 100 MG CAPSULE PO SCH ×2 (09:11→17:44)
[2022-10-26] MEDS: CEFEPIME 1 GM in IV D5W 50 ML IV SCH (10:51)
[2022-10-26 12:00] VITALS: BP 125/62
[2022-10-26] MEDS ORDERED: LEVO500T90 PO (12:27)
[2022-10-26] MEDS ORDERED: EPOETIN ALFA-EPBX 4,000 UNIT/ML VIAL IV SCH (15:00)
[2022-10-26 16:00] VITALS: BP 124/68
--- NOTE | 2022-10-26 19:59 | NUR ---
GRINDER OPERATOR EXTERNAL TOOL DC NOTES: PATIENT SLEEPING IN BED, A/O X 4, ABLE TO MAKE NEEDS KNOWN. NO C/O PAIN OR DISCOMFORT AT THIS TIME. ON ROOM AIR, NO S/S OF SOB. ASSIGNMENT CLERK WITH CURRENT READING OF SR, HR = 72. PERMA CATH ON RIGHT UPPER CHEST, WITH DRESSING CLEAN AND INTACT. 10/26/22, S/P HD, OUTPUT = 1.7L. DC INSTRUCTIONS AND BELONGINGS DISCUSSED WITH PT, SIGNED DOCS. IV ACCESS AND ID BAND REMOVED. CALLED SNF, GAVE REPORT BY PHONE TO MELISSA MOSQUERA, PT IS PENDING FAMILY INDEPENDENCE CASE MANAGER BY AMBULANCE, ETA WAS 1700 BUT IS RUNNING LATE. ENDORSED TO MELISSA PALACIO Addendum: 10/26/22 at 2003 by FARHAT SALINAS RN ETA WAS 1900
--- NOTE | 2022-10-26 20:14 | NUR ---
NAIL GALVANIZER NOTE PATIENT PICKED UP BY 2 EMT'S FOR DISCHARGE, REPORT AND DISCHARGE PACKAGE GIVEN TO EMT'S. PATIENT PICKED UP IN STABLE CONDITION, ALERT/ORIENTED X 4, STABLE ON RA, NO S/S OF DISTRESS OR SOB NOTED, BREATHING EVEN AND UNLABORED. IV ACCESS AND ARM BAND AND TELE MONITOR REMOVED BY DAYSHIFT RN. ALL BELONGINGS TAKEN WITH PATIENT.
== END 2022-10-26 20:15 | DRG 811 ==
LOC: ER 19:10 → MED 23:07 → TELE 10-24 03:50
PROVIDERS: ADMIT Internal Medicine; ATTEND Registered Nurse
PROC: 30233N1 Transfusion of Nonautologous Red Blood Cells into Peripheral Vein, Percutaneous Approach (ICD-10-PCS; principal; 2022-10-23)
DX: D62 Acute posthemorrhagic anemia (principal); J15.9 Unspecified bacterial pneumonia; N18.6 End stage renal disease; E44.1 Mild protein-calorie malnutrition; I12.0 Hypertensive chronic kidney disease with stage 5 chronic kidney disease or end stage renal disease; N39.0 Urinary tract infection, site not specified; E11.22 Type 2 diabetes mellitus with diabetic chronic kidney disease; E11.65 Type 2 diabetes mellitus with hyperglycemia; Z99.2 Dependence on renal dialysis; D63.1 Anemia in chronic kidney disease; E88.09 Other disorders of plasma-protein metabolism, not elsewhere classified; E83.89 Other disorders of mineral metabolism; Z20.822 Contact with and (suspected) exposure to COVID-19
CPT/HCPCS: 36415; 71045-TC; 80048-TC; 80053-TC; 80076-TC; 81001; 82962-TC; 83735-TC; 84100-TC; 85025-TC; 85027-TC; 85730-TC; 86850-TC; 87081-TC; 87086-TC; 90935-TC; 93971-TC; 97112-TC; 97116-TC; 97530-TC; A4223; C9803; G0378; J0692; J0885; J1815; J7030; J7040; J7060; P9016